=== PATIENT | male | born 1950 | race Caucasian/White ===

== ENCOUNTER 2020-03-20 13:59 | Emergency (ER) | payer MEDICARE, SELFPAY ==
--- NOTE | 2020-03-20 | CT_ITS ---
EXAMINATION: CT ABDOMEN AND PELVIS WITH CONTRAST CLINICAL INFORMATION: Lower abdominal pain COMPARISON: None TECHNIQUE: Multidetector volumetric images were obtained from the superior aspect of the liver through the pubic symphysis following administration 85 mL of Omnipaque 350 intravenous contrast. Sagittal and coronal reformatted images were obtained on the technologist's workstation. Oral contrast: Yes This CT examination was performed using dose optimization techniques as appropriate, variously including the following: *Automated exposure control *Adjustment of mA and/or kV according to patient size (this includes techniques or standardized protocols for targeted exams where dose is matched to indication/reason for exam; i.e. extremities or head) *Use of iterative reconstruction technique DLP: 538 mGy-cm FINDINGS: LUNG BASES: There is a small area of increased interstitial markings and question small nodules in the posterior costophrenic angle of the right lower lobe. Largest nodule measures 4 mm axial image 172 series 4. There is a small pericardial effusion. LIVER, GALLBLADDER, AND BILIARY TREE: The liver is normal in size, shape, and attenuation. There is a small 3 mm low-attenuation lesion in the left lobe of the liver probably representing a cyst. No other liver lesion is seen. The gallbladder has been removed. There is no biliary duct dilatation. PANCREAS: Unremarkable. SPLEEN: Unremarkable. ADRENAL GLANDS: There is a 1 x 1.4 cm left adrenal nodule axial image 27 series 3. Hounsfield units are indeterminate measuring 53 postcontrast. The right adrenal gland is normal-appearing. KIDNEYS AND URETERS: There are small bilateral renal cysts. There is a small 3 mm nonobstructing stone in the lower pole of the right kidney. No hydronephrosis is seen. There is mild right distal ureteral dilatation adjacent to the inflammatory changes in the sigmoid colon. BLADDER: There are bladder diverticuli. The prostate gland is enlarged and protrudes into the base of the bladder. GASTROINTESTINAL TRACT: There is diverticulosis of the colon. There is wall thickening of the sigmoid colon and stranding of the adjacent fat suggestive of sigmoid diverticulitis. Small and large bowel is otherwise unremarkable. The appendix is unremarkable. The stomach is a unremarkable. ABDOMINAL WALL: there is a left inguinal hernia containing fat. LYMPH NODES: Normal. VASCULAR: Unremarkable. PELVIC VISCERA: The prostate gland is enlarged and measures 8.2 x 6.5 cm in AP and transverse dimension. The prostate gland protrudes into the base of the bladder. OSSEOUS STRUCTURES: There are degenerative changes of the spine. IMPRESSION: Sigmoid diverticulitis. No evidence of obstruction, perforation or abscess. This causes mild right ureteral dilatation. No right hydronephrosis is seen. Small nonobstructing right renal stone. Small bladder diverticuli. Enlarged prostate gland that protrudes into the base of the bladder. Left inguinal hernia containing fat. Findings were communicated to be communicated by the [place] work flow engine wiper Camilla Fofana.
[2020-03-20 14:21] VITALS: BP 130/89; PULSE 97; RESP 18; TEMP 36.8; O2SAT 98; BMI 28.3
[2020-03-20] MEDS: 0.9 % Sodium Chloride 1,000 ML 999 ML IVCONT (15:49)
[2020-03-20 15:55] LABS: MANUAL DIFF FLAG NO
[2020-03-20 16:02] LABS: Basophils Absolute Auto 0.1 X10*3/uL (0.0-0.2); Basophils Percent Auto 0.4 % (0-2); Eosinophils Absolute Auto 0.1 X10*3/uL (0.0-0.4); Eosinophils Percent Auto 0.7 % (0-4); Hematocrit 47.2 % (42-52); Imm Gran Abs Auto 0.03 X10*3/uL (0.00-0.03); Imm Gran Pct Auto 0.3 % (0.0-0.4); Lymphocytes Absolute Auto 1.7 X10*3/uL (1.2-4.9); Lymphocytes Percent Auto 14.8 % (20-40); Mean Corpuscular HGB Conc 33.9 g/dl (31.0-36.0); Mean Corpuscular Hemoglobin 31.2 pg (27.0-33.0); Mean Platelet Volume 9.4 fL (9.4-12.4); Monocytes Absolute Auto 0.9 X10*3/uL (0.1-1.2); Neutrophils Absolute Auto 8.8 X10*3/uL (2.0-8.3); Neutrophils Percent Auto 75.8 % (45-73); Platelet Count 268 X10*3/uL (160-400); Red Blood Count 5.13 X10*6/uL (4.60-5.80); Red Cell Distribution Width 11.9 % (11.0-16.0); White Blood Count 11.6 X10*3/uL (4.8-10.8)
--- NOTE | 2020-03-20 16:06 | ED.ABDPAIN ---
HPI - Abdominal Pain General Chief Complaint: Abdominal Pain Stated Complaint: abdominal pain Time Seen by Provider: 03/20/20 15:07 Source: patient Mode of arrival: ambulatory Limitations: language barrier History of Present Illness HPI narrative: 70yoM c PMHx of HTN and enlarged prostate presenting to the ED c c/o lower abd pain x 2 days With associated increased urgency /frequency. Reports recently had A colonoscopy by the mechanic sound technician and patient believes that the colonoscopy was within normal limits. Therefore the GI doctor instructed him to come to the ER. Denies Fevers, N/V/D, CP/SOB, back pain, hematuria or dysuria. Related Data Allergies Allergy/AdvReac Type Severity Reaction Status Date / Time No Known Allergies Allergy Verified 03/20/20 14:20 Review of Systems Review of Systems Yes all other systems are reviewed and are negative Constitutional: Reports as per HPI, Denies anorexia, Denies body ache(s), Denies chills, Denies fatigue, Denies fever(s), Denies headache(s), Denies poor appetite, Denies weakness, Denies weight gain and Denies weight loss Eyes: Reports as per HPI Reports as per HPI, Denies dizziness, Denies headache(s) and Denies neck pain Cardiovascular: Reports as per HPI, Denies chest pain and Denies dyspnea Respiratory: Reports as per HPI, Denies cough and Denies dyspnea Gastrointestinal: Reports as per HPI, Reports abdominal pain, Denies melena, Denies hematochezia, Denies coffee ground emesis, Denies constipation, Denies diarrhea, Denies loose stools, Denies nausea, Denies vomiting and Denies hematemesis Genitourinary: Reports as per HPI, Denies hematuria, Denies difficulty urinating, Denies genital lesions, Denies genital pain, Denies flank pain, Denies urinary frequency, Denies urinary hesitancy and Denies urinary urgency Musculoskeletal: Reports as per HPI, Denies neck pain, Denies numbness and Denies tingling Skin/Breast: Reports as per HPI Reports as per HPI, Denies dizziness, Denies headache(s), Denies numbness, Denies tingling and Denies weakness Psychiatric: Reports as per HPI Endocrine: Reports as per HPI and Denies fatigue Hematologic/Lymphatic: Reports as per HPI Allergic/Immunologic: Reports as per HPI Physical Exam Vital Signs and I&O and Narrative: Vital Signs and I&O: Vital Signs Temp 98.2 F 03/20/20 14:21 Pulse 97 03/20/20 14:21 Resp 18 03/20/20 14:21 BP 130/89 03/20/20 14:21 Pulse Ox 98 03/20/20 14:21 Intake & Output 03/19/20 03/20/20 03/20/20 18:59 06:59 18:59 Intake Total 1000 / 1000 Balance 1000 / 1000 Weight 77.111 kg Intake: Intake, IV Amoun t 1000 / 1000 0.9 % Sodium C hloride 1,000 ml 1000 / 1000 @ 999 mls/hr I VCONT .Q1H1M [facility] Rx#:[id number] Body Mass Index 28.3 Const: General: cooperative, healthy appearing, comfortable, no acute distress, well developed, alert, awake and Physically active Nutritional Appearance: average body habitus and well nourished Orientation/consciousness: patient oriented x3 Limitations: no limitations HENMT: Head: Yes normal to inspection, Yes No palpable skull fracture present, Yes normocephalic and Yes atraumatic Ears: hearing grossly normal bilaterally General nose exam: Normal external nose present Face and sinus: Yes normal facial exam Mouth: moist mucous membranes Eyes: General: appearance normal, both eyes and all related structures Visual Romano: normal visual romano by confrontation Alignment and Position: alignment normal Periorbital: periorbital findings normal Eyelids: Yes eyelids normal Conjunctivae: conjunctivae normal Sclerae: sclerae normal Pupils: Equal, round and reactive pupils present EOM: EOMs intact bilaterally Neck: Neck: Yes normal visual inspection, Yes full ROM, Yes no lymphadenopathy, Yes no meningeal signs, Yes trachea midline and Yes supple Chest: Chest palpation & inspection: normal inspection of the chest Resp: Effort & Inspection: normal respiratory effort and able to speak in complete sentences Auscultation: clear to auscultation bilaterally, no crackles, no rales, no rhonchi and no wheezes Cardio: Rate: regular rate Rhythm: regular rhythm Heart sounds: S1 normal heart sound present and S2 normal heart sound present Peripheral pulses: Peripheral pulses 2+ throughout GI: Inspection: Yes normal to inspection Palpation (GI): Soft to palpation, nontender and No hepatosplenomegaly present Percussion: Yes normal to percussion Auscultation: normal bowel sounds : General: Yes no CVA tenderness Back/Spine/Pelvis: Back: no CVA tenderness Cervical Spine: normal cervical lordosis and cervical ROM normal Thoracic/Lumbar Spine: thoracic and lumbar spine normal to inspection and thoraco-lumbar ROM normal Skin: General skin exam: no rashes or lesions noted, elasticity normal and turgor normal Trauma: no lacerations or abrasions Wounds: no wounds Hair: normal Nails: normal Neuro: General: patient oriented x3 and no meningeal signs Cranial nerves: Yes CN's II-XII intact bilaterally and Yes Equal, round and reactive pupils present Cognition (Neuro): normal cognition Gait exam (Neuro): Normal gait present Motor exam (neuro): 5/5 motor strength present throughout Extrem: General: Yes normal to inspection, Yes full ROM, Yes capillary refill normal, Yes no clubbing, cyanosis or edema, No no pedal edema, No no calf tenderness, Yes normal gait and No edema Right upper extremity: normal to inspection, full ROM and normal capillary refill; no edema Left upper extremity: normal to inspection, full ROM and normal capillary refill; no edema Right lower extremity: normal to inspection, full ROM and normal capillary refill; no edema Left lower extremity: normal to inspection, full ROM and normal capillary refill; no edema Psych: Appearance: grossly normal and well kempt Mental Status: mental status grossly normal Speech and movement: Normal speech and movement present and Clear speech present Affect: normal affect Attitude: cooperative Thought process: Normal thought process present Thought content: Normal thought content present Insight: Good insight present (Psych) Judgement: Good judgement present (Psych) Course Course Course Narrative: - Labs WNL. - Awaiting CT scan of abd/pelvis c IV contrast and UA. - Sign out to VICTORIANO Faria. MDM - Abdominal Pain MDM Narrative Medical decision making narrative: 70yoM c PMHx of HTN and enlarged prostate presenting to the ED c c/o lower abd pain x 2 days With associated increased urgency /frequency. Reports recently had A colonoscopy by the mechanic sound technician and patient believes that the colonoscopy was within normal limits. Therefore the GI doctor instructed him to come to the ER. Denies Fevers, N/V/D, CP/SOB, back pain, hematuria or dysuria. - Concern for obstruction vs UTI. Lessd concern for appendicitis. Plan: Labs, CT scan of abd/pelvis c IV contrast, UA. Pt declined pain meds at this time reports tooo Motrin machine captain at 11am. Then re-evaluate. Lab Data Result diagrams: 03/20/20 15:46 03/20/20 15:45 Labs: Lab Results 03/20/20 03/20/20 03/20/20 Range/Units 15:45 15:46 15:46 WBC 11.6 H (4.8-10.8) X10*3/uL RBC 5.13 (4.60-5.80) X10*6/uL Hgb 16.0 (14.0-18.0) g/dl Hct 47.2 (42-52) % MCV 92.0 (80-98) fL MCH 31.2 (27.0-33.0) pg MCHC 33.9 (31.0-36.0) g/dl RDW 11.9 (11.0-16.0) % Plt Count 268 (160-400) X10*3/uL MPV 9.4 (9.4-12.4) fL Immature Gran % (Auto) 0.3 (0.0-0.4) % Neut % (Auto) 75.8 H (45-73) % Lymph % (Auto) 14.8 L (20-40) % [place] % (Auto) 8.0 (2-11) % Eos % (Auto) 0.7 (0-4) % Baso % (Auto) 0.4 (0-2) % Lymph # (Auto) 1.7 (1.2-4.9) X10*3/uL [place] # (Auto) 0.9 (0.1-1.2) X10*3/uL Eos # (Auto) 0.1 (0.0-0.4) X10*3/uL Baso # (Auto) 0.1 (0.0-0.2) X10*3/uL Abs Immat Gran (auto) 0.03 (0.00-0.03) X10*3/uL Absolute Neuts (auto) 8.8 H (2.0-8.3) X10*3/uL Absolute Nucleated RBC 0.000 (0.0-0.012) X10*3/uL Nucleated RBC % (auto) 0.0 (0.0-0.2) /100WBC Hold Purple Top SEE NOTE PT (10.8-13.0) SEC INR (0.9-1.1) Sodium 139 (135-145) mmol/L Potassium 3.7 (3.3-5.1) mmol/l Chloride 104 (96-108) mmol/L Carbon Dioxide 25 (22-29) mmol/L Anion Gap 14 (12-20) BUN 11 (9-16) mg/dL Creatinine 1.07 (0.5-1.4) mg/dL Estim Creat Clear Calc 60.6 Estimated GFR > 60 Random Glucose 104 (60-115) mg/dL Calcium 9.2 (8.4-10.2) mg/dL Total Bilirubin 0.8 (0.0-1.0) mg/dL Direct Bilirubin 0.3 (0.0-0.5) mg/dL AST 12 (5-37) U/L ALT 11 (0-40) U/L Alkaline Phosphatase 70 (39-117) U/L Total Protein 7.2 (6.5-8.0) g/dL Albumin 3.9 (3.5-5.0) g/dL 03/20/20 Range/Units 15:46 WBC (4.8-10.8) X10*3/uL RBC (4.60-5.80) X10*6/uL Hgb (14.0-18.0) g/dl Hct (42-52) % MCV (80-98) fL MCH (27.0-33.0) pg MCHC (31.0-36.0) g/dl RDW (11.0-16.0) % Plt Count (160-400) X10*3/uL MPV (9.4-12.4) fL Immature Gran % (Auto) (0.0-0.4) % Neut % (Auto) (45-73) % Lymph % (Auto) (20-40) % [place] % (Auto) (2-11) % Eos % (Auto) (0-4) % Baso % (Auto) (0-2) % Lymph # (Auto) (1.2-4.9) X10*3/uL [place] # (Auto) (0.1-1.2) X10*3/uL Eos # (Auto) (0.0-0.4) X10*3/uL Baso # (Auto) (0.0-0.2) X10*3/uL Abs Immat Gran (auto) (0.00-0.03) X10*3/uL Absolute Neuts (auto) (2.0-8.3) X10*3/uL Absolute Nucleated RBC (0.0-0.012) X10*3/uL Nucleated RBC % (auto) (0.0-0.2) /100WBC Hold Purple Top PT 13.4 H (10.8-13.0) SEC INR 1.1 (0.9-1.1) Sodium (135-145) mmol/L Potassium (3.3-5.1) mmol/l Chloride (96-108) mmol/L Carbon Dioxide (22-29) mmol/L Anion Gap (12-20) BUN (9-16) mg/dL Creatinine (0.5-1.4) mg/dL Estim Creat Clear Calc Estimated GFR Random Glucose (60-115) mg/dL Calcium (8.4-10.2) mg/dL Total Bilirubin (0.0-1.0) mg/dL Direct Bilirubin (0.0-0.5) mg/dL AST (5-37) U/L ALT (0-40) U/L Alkaline Phosphatase (39-117) U/L Total Protein (6.5-8.0) g/dL Albumin (3.5-5.0) g/dL [facility] Past Medical History Attestation statement: The following information was validated with the patient. Medical History Hypertension Prostate enlargement Surgical History History of cholecystectomy Social History Social History Alcohol intake: unknown Smoking Status: Unknown if ever smoked Use of substances other than those prescribed or required for medical reasons: No Advance Directives: No Advance Directives Information Provided: No
[2020-03-20 16:18] LABS: INTERNATIONAL NORM RATIO 1.1 (0.9-1.1); Prothrombin Time 13.4 SEC (10.8-13.0)
[2020-03-20 16:20] LABS: Alanine Aminotransferase 11 U/L (0-40); Albumin Level 3.9 g/dL (3.5-5.0); Alkaline Phosphatase 70 U/L (39-117); Anion Gap 14 (12-20); Aspartate Amino Transferase 12 U/L (5-37); Bilirubin Direct 0.3 mg/dL (0.0-0.5); Bilirubin Total 0.8 mg/dL (0.0-1.0); Blood Urea Nitrogen 11 mg/dL (9-16); Calcium 9.2 mg/dL (8.4-10.2); Carbon Dioxide 25 mmol/L (22-29); Chloride 104 mmol/L (96-108); Creatinine Clr Calc Pharmacy 60.6; Estimated Glomerular Filt Rate > 60; Glucose Random 104 mg/dL (60-115); Potassium 3.7 mmol/l (3.3-5.1); Sodium 139 mmol/L (135-145); Total Protein 7.2 g/dL (6.5-8.0)
[2020-03-20] MEDS: iohexoL 350 MG/ML 100 ML INFUS..BTL IV (16:32)
[2020-03-20 17:45] LABS: Glucose Urine UA NEG (NEG); Leukocyte Esterase Urine NEG (NEG); Nitrite Urine NEG (NEG); Urine Blood NEG (NEG); Urine Ketones NEG (NEG); Urine Protein NEG (NEG-TRACE)
[2020-03-20 17:46] LABS: Appearance Urine CLEAR; Color Urine STRAW
[2020-03-20 18:09] LABS: RBC Urine 0-2 /HPF (0); Squamous Epithelial Cell Urine TRACE /LPF; WBC Urine 0-2 /HPF (0-4)
== END 2020-03-20 18:35 | disposition home or self-care (01) ==
PROVIDERS: Physician Assistant Medical; Emergency Provider Internal Medicine; PCP Internal Medicine
DX: R10.9 Unspecified abdominal pain (principal); I10 Essential (primary) hypertension; Z79.899 Other long term (current) drug therapy
CPT/HCPCS: 36415; 74177; 80048; 80076; 81001; 85025; 85610; 96360; 99284

== ENCOUNTER → 2020-05-15 10:18 | Outpatient (BNVA) | payer SELFPAY | PROVIDERS: Visit Provider Internal Medicine Gastroenterology | DX: Z76.89 Persons encountering health services in other specified circumstances (principal) ==

== ENCOUNTER 2020-10-20 15:25 | Outpatient (REF) | payer MEDICARE, SELFPAY ==
--- NOTE | ~2020-10-20 | XR_ITS ---
EXAMINATION: XR CHEST CLINICAL INFORMATION: R06.00 - Dyspnea, unspecified COMPARISON: Chest radiographs 10/25/2018 TECHNIQUE: 2 views of the chest were obtained. FINDINGS: The lungs are clear. There is no airspace consolidation or effusion. The vascularity is normal. There is no pneumothorax or pneumomediastinum. The costophrenic sulci are clear. The heart is normal in size. The hilar and mediastinal contours are normal. No visible acute bony abnormality. XR/XR chest 2V IMPRESSION: Unremarkable examination.
== END 2020-10-20 15:26 | disposition home or self-care (01) ==
LOC: HO.HMGCX 15:25
PROVIDERS: PCP Internal Medicine; Visit Provider Internal Medicine
DX: R07.9 Chest pain, unspecified (principal); R06.00 Dyspnea, unspecified; I10 Essential (primary) hypertension; N40.0 Benign prostatic hyperplasia without lower urinary tract symptoms
CPT/HCPCS: 71046

== ENCOUNTER 2020-10-21 07:57 | Outpatient (REF) | payer MEDICARE, SELFPAY ==
[2020-10-21 11:40] LABS: Hematocrit 51.2 % (42-52); Hemoglobin 16.8 g/dl (14.0-18.0); Mean Corpuscular HGB Conc 32.8 g/dl (31.0-36.0); Mean Corpuscular Hemoglobin 30.8 pg (27.0-33.0); Mean Corpuscular Volume 93.9 fL (80-98); Mean Platelet Volume 9.9 fL (9.4-12.4); Platelet Count 242 X10*3/uL (160-400); Red Blood Count 5.45 X10*6/uL (4.60-5.80); Red Cell Distribution Width 12.3 % (11.0-16.0); White Blood Count 6.7 X10*3/uL (4.8-10.8)
[2020-10-21 11:59] LABS: Alanine Aminotransferase 12 U/L (0-40); Albumin Level 3.9 g/dL (3.5-5.0); Alkaline Phosphatase 83 U/L (39-117); Anion Gap 14 (12-20); Aspartate Amino Transferase 12 U/L (5-37); Bilirubin Total 1.1 mg/dL (0.0-1.0); Blood Urea Nitrogen 21 mg/dL (9-16); Calcium 9.6 mg/dL (8.4-10.2); Carbon Dioxide 28 mmol/L (22-29); Chloride 104 mmol/L (96-108); Cholesterol 168 mg/dL; Estimated Glomerular Filt Rate > 60; Glucose Fasting 87 mg/dL (60-99); HDL Cholesterol 39 mg/dL; LDL Cholesterol Calculated 95 mg/dl; Potassium 3.6 mmol/L (3.3-5.1); Sodium 142 mmol/L (135-145); Total Protein 7.3 g/dL (6.5-8.0); Triglycerides 174 mg/dL
[2020-10-21 12:25] LABS: B Type Natriuretic Peptide < 10 pg/mL (<100)
[2020-10-21 12:26] LABS: Prostate Specific Antigen Scr 2.94 ng/mL (<0.05-4.0)
== END 2020-10-21 07:58 | disposition home or self-care (01) ==
LOC: HO.HMGCLDS 07:57
PROVIDERS: PCP Internal Medicine; Visit Provider Internal Medicine
DX: R06.00 Dyspnea, unspecified (principal); R07.9 Chest pain, unspecified; I10 Essential (primary) hypertension; N40.0 Benign prostatic hyperplasia without lower urinary tract symptoms
CPT/HCPCS: 36415; 80053; 80061; 83880; 84153; 85027

== ENCOUNTER → 2021-02-22 13:19 | Outpatient (BNVA) | payer MEDICARE, SELFPAY | PROVIDERS: PCP Internal Medicine; Referring Provider Internal Medicine; Visit Provider Internal Medicine Gastroenterology | DX: R07.9 Chest pain, unspecified (principal); R10.9 Unspecified abdominal pain; I10 Essential (primary) hypertension; N40.0 Benign prostatic hyperplasia without lower urinary tract symptoms | CPT/HCPCS: 99212 ==

== ENCOUNTER → 2021-04-14 09:00 | Outpatient (BNVA) | payer MEDICARE, SELFPAY | PROVIDERS: PCP Internal Medicine; Referring Provider Internal Medicine Gastroenterology; Visit Provider Internal Medicine Cardiovascular Disease | DX: I10 Essential (primary) hypertension (principal); R07.9 Chest pain, unspecified | CPT/HCPCS: 99202 ==

== ENCOUNTER → 2021-05-17 09:58 | Outpatient (REF) | payer MEDICARE, SELFPAY ==
--- NOTE | 2021-05-17 10:05 | CA_ITS ---
Acquisition Time: 2021-05-17 11:08:13 Total Exercise Time: 00:05:00 Test Indications: cp Medications: Protocol: RALPH Max HR: 139 BPM 93% of Pred: 148 BPM Max BP: 174/094 mmHG Max Work Load: 7.0 METS Exercise stress test with exercise 5 min of of Ralph protocol, [id number] MPHR, with mild to moderate shortness of breath, no chest discomfort, with isolated PVC, with normotensive response to exercise, without EKG changes meeting criteria for ischemia. Test reviewed with Dr Bach. Referred By: Toni Bach Overread By: CARLOS ALBERTO BEDOLLA
== END ==
LOC: HO.CARD 09:58
PROVIDERS: Visit Provider Radiology Radiation Oncology
DX: R07.9 Chest pain, unspecified (principal)
CPT/HCPCS: 93017

== ENCOUNTER 2021-12-02 07:54 | Outpatient (REF) | payer MEDICARE, SELFPAY ==
[2021-12-02 11:17] LABS: Hematocrit 50.2 % (42.0-52.0); Hemoglobin 16.4 g/dl (14.0-18.0); Mean Corpuscular HGB Conc 32.7 g/dl (31.0-36.0); Mean Corpuscular Hemoglobin 30.4 pg (27.0-33.0); Mean Corpuscular Volume 93.1 fL (80.0-98.0); Mean Platelet Volume 9.9 fL (9.4-12.4); Platelet Count 232 X10*3/uL (160-400); Red Blood Count 5.39 X10*6/uL (4.60-5.80); Red Cell Distribution Width 12.4 % (11.0-16.0); White Blood Count 6.9 X10*3/uL (4.8-10.8)
[2021-12-02 11:25] LABS: Alanine Aminotransferase 13 U/L (0-40); Albumin Level 3.9 g/dL (3.5-5.0); Alkaline Phosphatase 76 U/L (39-117); Anion Gap 11 (12-20); Aspartate Amino Transferase 13 U/L (5-37); Bilirubin Total 1.1 mg/dL (0.0-1.0); Blood Urea Nitrogen 15 mg/dL (9-16); Calcium 9.4 mg/dL (8.4-10.2); Carbon Dioxide 29 mmol/L (22-29); Chloride 103 mmol/L (96-108); Cholesterol 162 mg/dL; Estimated Glomerular Filt Rate > 60; Glucose Fasting 94 mg/dL (60-99); HDL Cholesterol 36 mg/dL; LDL Cholesterol Calculated 86 mg/dl; Potassium 3.8 mmol/L (3.3-5.1); Sodium 139 mmol/L (135-145); Total Protein 7.4 g/dL (6.5-8.0); Triglycerides 200 mg/dL
[2021-12-02 11:52] LABS: Prostate Specific Antigen Scr 4.54 ng/mL (<0.05-4.0)
== END 2021-12-02 07:55 | disposition home or self-care (01) ==
LOC: HO.HMGCLDS 07:54
PROVIDERS: PCP Internal Medicine; Visit Provider Internal Medicine
DX: Z00.00 Encounter for general adult medical examination without abnormal findings (principal); Z12.5 Encounter for screening for malignant neoplasm of prostate; N40.0 Benign prostatic hyperplasia without lower urinary tract symptoms; I10 Essential (primary) hypertension
CPT/HCPCS: 36415; 80053; 80061; 84153; 85027

== ENCOUNTER → 2022-01-05 11:01 | Outpatient (BNVA) | payer MEDICARE, SELFPAY | PROVIDERS: PCP Internal Medicine; Visit Provider Surgery | DX: K64.8 Other hemorrhoids (principal); K64.4 Residual hemorrhoidal skin tags | CPT/HCPCS: 46600; 99202 ==

== ENCOUNTER 2022-03-07 07:42 | Outpatient (REF) | payer MEDICARE, SELFPAY ==
[2022-03-07 12:06] LABS: PSA,Total (Free>4and<10) 2.82 ng/mL (0.00-4.00)
== END 2022-03-07 07:43 | disposition home or self-care (01) ==
LOC: HO.HMGCLDS 07:42
PROVIDERS: PCP Internal Medicine; Visit Provider Internal Medicine
DX: N40.0 Benign prostatic hyperplasia without lower urinary tract symptoms (principal); Z12.5 Encounter for screening for malignant neoplasm of prostate
CPT/HCPCS: 36415; 84153

== ENCOUNTER 2022-07-04 14:56 | Outpatient (REF) | payer MEDICARE, SELFPAY ==
[2022-07-04 16:38] LABS: MANUAL DIFF FLAG NO
[2022-07-04 16:39] LABS: Basophils Absolute Auto 0.1 X10*3/uL (0.0-0.2); Eosinophils Absolute Auto 0.1 X10*3/uL (0.0-0.4); Eosinophils Percent Auto 1.7 % (0-4); Hemoglobin 17.4 g/dl (14.0-18.0); Imm Gran Abs Auto 0.02 X10*3/uL (0.00-0.03); Imm Gran Pct Auto 0.3 % (0.0-0.4); Lymphocytes Absolute Auto 2.4 X10*3/uL (1.2-4.9); Lymphocytes Percent Auto 31.1 % (20-40); Mean Corpuscular HGB Conc 34.1 g/dl (31.0-36.0); Mean Corpuscular Hemoglobin 31.1 pg (27.0-33.0); Mean Corpuscular Volume 91.1 fL (80.0-98.0); Mean Platelet Volume 9.8 fL (9.4-12.4); Monocytes Absolute Auto 0.6 X10*3/uL (0.1-1.2); Monocytes Percent Auto 7.9 % (2-11); Neutrophils Absolute Auto 4.4 x10*3/uL (2.0-8.3); Platelet Count 256 X10*3/uL (160-400); White Blood Count 7.6 X10*3/uL (4.8-10.8)
[2022-07-04 18:13] LABS: Alanine Aminotransferase 10 U/L (0-40); Albumin Level 3.9 g/dL (3.5-5.0); Alkaline Phosphatase 80 U/L (39-117); Anion Gap 9 (12-20); Aspartate Amino Transferase 12 U/L (5-37); Bilirubin Total 0.7 mg/dL (0.0-1.0); Blood Urea Nitrogen 18 mg/dL (9-16); Calcium 9.6 mg/dL (8.4-10.2); Carbon Dioxide 29 mmol/L (22-29); Chloride 104 mmol/L (96-108); Estimated Glomerular Filt Rate > 60; Glucose Random 101 mg/dL (60-115); Potassium 3.3 mmol/L (3.3-5.1); Sodium 139 mmol/L (135-145); Total Protein 7.2 g/dL (6.5-8.0)
[2022-07-04 18:20] LABS: Troponin-I High Sensitivity 16.4 ng/L (<3.5-35.0)
== END 2022-07-04 14:57 | disposition home or self-care (01) ==
LOC: HO.HMGCLDS 14:56
PROVIDERS: PCP Internal Medicine; Visit Provider Internal Medicine
DX: R07.9 Chest pain, unspecified (principal)
CPT/HCPCS: 36415; 80053; 84484; 85025

== ENCOUNTER → 2022-07-13 07:56 | Outpatient (REF) | payer MEDICARE, SELFPAY ==
--- NOTE | ~2022-07-13 | NM_ITS ---
Exercise Myocardial perfusion study Indication: Chest pain to evaluate for myocardial ischemia Technique: The patient was brought in for an exercise perfusion study on 07/13/2022. Patient performed exercise as per Hernán protocol and was injected 25 mCi of sestamibi was given intravenously one target HR was achieved. Images were obtained using the SPECT gamma camera interlaced with the gating device. Images were obtained in supine position. Resting perfusion study was performed on 07/14/2022. Patient was administered 25 mCi of sestamibi intravenously at rest. Images were then obtained in supine position. Images obtained with and without CT attenuation. Total DLP 87 mGy-cm. Images were processed with the software and compared side to side in short axis, horizontal long axis and vertical long axis views. Findings: The stress perfusion study showed non attenuated images show moderately reduced uptake in the basal inferior wall of the LV myocardium. Attenuation corrected images show mildly reduced uptake in the distal anterior and apex of the LV myocardium.. The gated study shows normal LV systolic function with visually estimated LVEF of greater than 55%. LV cavity is normal in size. The gated study shows normal systolic wall thickening and contraction of all segments. There is no transient ischemic dilation. Resting study shows no change in perfusion pattern compared to stress perfusion study. Gating at rest reveals normal systolic wall motion with ejection fraction at 57%. The findings are consistent with no clear reversible defect suggestive of ischemia. Likely normal myocardial perfusion. NM/NM cardiolite stress test Impression: 1. Normal myocardial perfusion 2. Gated LVEF is 57% 3. Transient ischemic dilatation not present Stress EKG is borderline for ischemia
--- NOTE | 2022-07-13 08:09 | CA_ITS ---
Acquisition Time: 2022-07-13 08:15:48 Total Exercise Time: 00:05:30 Test Indications: CHEST PAIN Medications: METOPROLOL LOSARTAN TAMSULOSIN ASA Protocol: RALPH Max HR: 129 BPM 87% of Pred: 147 BPM Max BP: 174/082 mmHG Max Work Load: 7.0 METS Exercise stress test with exercise 5 min 30 sec of Ralph protocol, achieving 87% MPHR, with mild to moderate sob, no chest discomfort, with isolated PVCs, with normotensive response to exercise, without EKG changes meeting criteria for ischemia, with J point depression and upsloping ST segments noted. Nuclear images pending. Test reviewed with Dr Bach Referred By: Renetta Feliz Overread By: CARLOS ALBERTO BEDOLLA
== END ==
LOC: HO.CARD 07:56
PROVIDERS: PCP Internal Medicine; Visit Provider Internal Medicine
DX: R07.9 Chest pain, unspecified (principal)
CPT/HCPCS: 78452; 93017; A9500

== ENCOUNTER 2022-10-19 14:43 | Outpatient (REF) | payer MEDICARE, SELFPAY ==
--- NOTE | ~2022-10-19 | XR_ITS ---
EXAMINATION: XR CHEST CLINICAL INFORMATION: Cough COMPARISON: 10/20/2020 TECHNIQUE: 2 views of the chest were obtained. FINDINGS: Multifocal infiltrates are present in both lungs, right greater than left. Heart size is normal. No evidence of CHF. No pleural effusions. Cholecystostomy clips in the right upper quadrant. Biconvex thoracolumbar scoliosis is present. XR/XR chest 2V IMPRESSION: Multifocal infiltrates, right greater than left, consistent with pneumonia. Repeat imaging is recommended after treatment.
== END 2022-10-19 14:44 | disposition home or self-care (01) ==
LOC: HO.HMGCX 14:43
PROVIDERS: PCP Internal Medicine; Visit Provider Internal Medicine
DX: R50.9 Fever, unspecified (principal)
CPT/HCPCS: 71046

== ENCOUNTER 2022-10-31 09:49 | Outpatient (REF) | payer MEDICARE, SELFPAY ==
--- NOTE | ~2022-10-31 | XR_ITS ---
EXAMINATION: XR CHEST CLINICAL INFORMATION: Pneumonia COMPARISON: Chest 10/19/2022 TECHNIQUE: 2 views of the chest were obtained. FINDINGS: The lungs are well-expanded with patchy opacities in the right upper lobe, right middle lobe and left midlung likely resolving infiltrates and/or atelectasis. No new infiltrates. No pleural effusion. Heart size and pulmonary vascularity is normal. No gross bony abnormality seen. XR/XR chest 2V IMPRESSION: Resolving bilateral infiltrates and/or atelectasis. No new infiltrate seen. No pleural effusion.
== END 2022-10-31 09:50 | disposition home or self-care (01) ==
LOC: HO.HMGCX 09:49
PROVIDERS: PCP Internal Medicine; Visit Provider Internal Medicine
DX: J18.9 Pneumonia, unspecified organism (principal)
CPT/HCPCS: 71046

== ENCOUNTER 2022-11-03 07:52 | Outpatient (REF) | payer MEDICARE, SELFPAY ==
[2022-11-03 10:45] LABS: B Type Natriuretic Peptide 16 pg/mL (<100)
[2022-11-03 11:12] LABS: MANUAL DIFF FLAG NO
[2022-11-03 11:31] LABS: Basophils Absolute Auto 0.1 X10*3/uL (0.0-0.2); Basophils Percent Auto 0.8 % (0-2); Eosinophils Absolute Auto 0.2 X10*3/uL (0.0-0.4); Eosinophils Percent Auto 2.6 % (0-4); Hematocrit 45.6 % (42.0-52.0); Hemoglobin 14.9 g/dl (14.0-18.0); Imm Gran Abs Auto 0.02 X10*3/uL (0.00-0.03); Imm Gran Pct Auto 0.3 % (0.0-0.4); Lymphocytes Absolute Auto 2.4 X10*3/uL (1.2-4.9); Lymphocytes Percent Auto 35.6 % (20-40); Mean Corpuscular HGB Conc 32.7 g/dl (31.0-36.0); Mean Corpuscular Hemoglobin 30.1 pg (27.0-33.0); Mean Corpuscular Volume 92.1 fL (80.0-98.0); Mean Platelet Volume 9.8 fL (9.4-12.4); Monocytes Absolute Auto 0.6 X10*3/uL (0.1-1.2); Monocytes Percent Auto 9.2 % (2-11); Neutrophils Absolute Auto 3.4 x10*3/uL (2.0-8.3); Neutrophils Percent Auto 51.5 % (45-73); Platelet Count 299 X10*3/uL (160-400); Red Blood Count 4.95 X10*6/uL (4.60-5.80); Red Cell Distribution Width 12.8 % (11.0-16.0); White Blood Count 6.6 X10*3/uL (4.8-10.8)
[2022-11-03 11:50] LABS: Alanine Aminotransferase 9 U/L (0-40); Albumin Level 3.4 g/dL (3.5-5.0); Alkaline Phosphatase 70 U/L (39-117); Anion Gap 9 (12-20); Aspartate Amino Transferase 12 U/L (5-37); Bilirubin Total 0.9 mg/dL (0.0-1.0); Blood Urea Nitrogen 14 mg/dL (9-16); C Reactive Protein 0.35 mg/dL (< or = 0.50); Calcium 9.4 mg/dL (8.4-10.2); Carbon Dioxide 27 mmol/L (22-29); Chloride 108 mmol/L (96-108); Estimated Glomerular Filt Rate > 60; Glucose Random 91 mg/dL (60-115); Sodium 140 mmol/L (135-145); Total Protein 7.1 g/dL (6.5-8.0)
== END 2022-11-03 07:53 | disposition home or self-care (01) ==
LOC: HO.HMGCLDS 07:52
PROVIDERS: PCP Internal Medicine; Visit Provider Internal Medicine
DX: J18.9 Pneumonia, unspecified organism (principal); R05.9 Cough, unspecified; R06.00 Dyspnea, unspecified
CPT/HCPCS: 36415; 80053; 83880; 85025; 86140

== ENCOUNTER 2023-01-23 10:43 | Outpatient (AMB) | payer MEDICARE, SELFPAY ==
[2023-01-23 11:07] VITALS: BP 130/72; PULSE 65; O2SAT 96; BMI 27.0
--- NOTE | 2023-01-23 11:07 | MHC.PC.OV ---
Vital Signs 01/23/23 11:07 Height 5 ft 5 in Weight 162 lb BMI 27.0 BP 130/72 Blood Pressure Location Lt brachial Position Sitting Pulse 65 Pulse Source Pulse Oximeter Pulse Oximetry (%) 96 Oxygen Delivery Method Room Air Intake Visit Reasons: 3 month follow up Intake Note: Pt is here today for 3 months follow up visit. Allergies No Known Allergies Allergy (Verified 01/23/23 11:11) Tobacco use date assessed: 07/04/22 Dental Screening Dental Screen Date: 01/23/23 Did you have a dental visit in the last 12 months?: Yes Did you have a dental problem in the last 6 months where you did not have access to dental care?: No Was dental information given to patient?: Patient has dentist HPI 3 month follow up HPI Details Patient presents for the follow-up on hypertension and BPH stable on current medications. [facility] Medical History Annual physical exam Chest pain DE LEÓN (dyspnea on exertion) Hemorrhoid prolapse Hypertension Prostate enlargement Surgical History History of cholecystectomy History of colonoscopy Hx of endoscopy Family History Father No problems noted. Mother Stroke Hypertension Social History Housing: House Alcohol intake: current Alcohol intake frequency: a few times a month Patient Tobacco Use Status: Former Tobacco user e-Cigarette/Vaping Use: Never Used Current occupational status: retired Cognitive needs: No Hearing needs: No Vision needs: Yes Questionnaire Thrive Questionnaire Date Thrive assessed: 07/04/22 SHARYN-7 AMB Questionnaire SHARYN-7 Date SHARYN - 7 assessed: 07/04/22 Source: Developed by Drs. Brendan Lawson, Carmita Casillas, Evans Goodwin and colleagues, with an educational lennie from [employer]. Review of Systems Const All systems reviewed & are unremarkable except as noted in HPI and below Reports no additional complaints Eyes Reports no additional complaints ENT Reports no additional complaints Card Reports no additional complaints Resp Reports no additional complaints GI Reports no additional complaints Reports no additional complaints Physical exam (Primary Care) Vital Signs: Last Vital Signs Pulse 65 01/23/23 11:07 BP 130/72 08/14/23 11:07 Pulse Ox 96 01/23/23 11:07 Oxygen Delivery Method Room Air 01/23/23 11:07 BMI result Body Mass Index 27.0 Tobacco/Smoking Status: Tobacco use Status Tobacco use date assessed 07/04/22 01/23/23 11:09 Patient Tobacco Use Status Former Tobacco user 01/23/23 11:09 e-Cigarette/Vaping Use Never Used 01/23/23 11:09 Thrive Assessment: Date of Thrive Assessment Date Thrive assessed 07/04/22 01/23/23 11:09 Const General: no acute distress HENMT Ears: hearing grossly normal bilaterally Mouth: Normal oral and palatal mucosa present Neck Neck: Yes no lymphadenopathy and Yes supple Resp Effort & Inspection: normal respiratory effort Auscultation: clear to auscultation bilaterally Cardio Rhythm: regular rhythm Heart sounds: S1 normal heart sound present and S2 normal heart sound present GI Inspection: Yes normal to inspection Palpation (GI): Soft to palpation Percussion: Yes normal to percussion Auscultation: normal bowel sounds Assessment and Plan Assessment & Plan (1) Hypertension: Code(s): I10 - Essential (primary) hypertension Plan: Continue medications (2) Annual physical exam: Code(s): Z00.00 - Encounter for general adult medical examination without abnormal findings Plan: Well-balanced diet regular physical activity discussed with the patient. he will follow-up in 6 months with a fasting labs before (3) Prostate enlargement: Code(s): N40.0 - Benign prostatic hyperplasia without lower urinary tract symptoms Plan: Monitor PSA and continue tamsulosin Orders: Orders Comprehensive [place]. Panel Fast 6 Months I10 - Essential (primary) hypertension, N40.0 - Benign prostatic hyperplasia without lower urinary tract symptoms, Z00.00 - Encounter for general adult medical examination without abnormal findings Lipid Panel 6 Months I10 - Essential (primary) hypertension, N40.0 - Benign prostatic hyperplasia without lower urinary tract symptoms, Z00.00 - Encounter for general adult medical examination without abnormal findings PSA,Total (Free>4and<10) 6 Months I10 - Essential (primary) hypertension, N40.0 - Benign prostatic hyperplasia without lower urinary tract symptoms, Z00.00 - Encounter for general adult medical examination without abnormal findings Complete Blood Count Auto Diff 6 Months I10 - Essential (primary) hypertension, N40.0 - Benign prostatic hyperplasia without lower urinary tract symptoms, Z00.00 - Encounter for general adult medical examination without abnormal findings Coding Level of Care Code Est Pt Level 4 (50692) Diagnoses Hypertension I10 Annual physical exam Z00.00 Prostate enlargement N40.0
== END 2023-01-23 11:52 | disposition home or self-care (01) ==
PROVIDERS: Visit Provider Internal Medicine
DX: I10 Essential (primary) hypertension (principal); Z00.00 Encounter for general adult medical examination without abnormal findings; N40.0 Benign prostatic hyperplasia without lower urinary tract symptoms
CPT/HCPCS: 99214

== ENCOUNTER 2023-03-22 11:54 | Outpatient (AMB) | payer MEDICARE, SELFPAY ==
[2023-03-22 12:04] VITALS: BP 110/68; PULSE 81; O2SAT 99; BMI 26.5
--- NOTE | 2023-03-22 12:04 | MHC.PC.OV ---
Vital Signs 03/22/23 12:04 Height 5 ft 5 in Weight 159 lb 4 oz BMI 26.5 BP 110/68 Blood Pressure Location Lt brachial Position Sitting Pulse 81 Pulse Source Pulse Oximeter Pulse Oximetry (%) 99 Oxygen Delivery Method Room Air Intake Visit Reasons: Follow up Allergies No Known Allergies Allergy (Verified 03/22/23 12:05) Medication List - Last Reconciled 03/22/23 by Renetta Feliz MD losartan-hydrochlorothiazide 50-12.5 mg 1 tab PO DAILY metoprolol succinate ER 50 mg PO DAILY pantoprazole 40 mg PO DAILY tamsulosin 0.4 mg PO DAILY triamcinolone acetonide 0.5% 1 appl topical BID Tobacco use date assessed: 03/22/23 HPI Follow up HPI Details Pt c/o 2 weeks of chills and night sweats, LLQ abd pain on and off and constipation, worse since hemorrhoid laser treatment in [place] 3 weeks ago. Pt has been taking Dulcolax daily. He denies rectal pain or discharge hematochezia melena. Patient reported intermittent dysuria and increased urinary frequency but no hematuria. [facility] Medical History Annual physical exam Chest pain DE LEÓN (dyspnea on exertion) Hemorrhoid prolapse Hypertension Prostate enlargement Surgical History History of cholecystectomy History of colonoscopy Hx of endoscopy Family History Father No problems noted. Mother Stroke Hypertension Social History Housing: House Alcohol intake: current Alcohol intake frequency: a few times a month Patient Tobacco Use Status: Former Tobacco user e-Cigarette/Vaping Use: Never Used Current occupational status: retired Cognitive needs: No Hearing needs: No Vision needs: Yes Questionnaire Thrive Questionnaire Date Thrive assessed: 07/04/22 SHARYN-7 AMB Questionnaire SHARYN-7 Date SHARYN - 7 assessed: 07/04/22 Source: Developed by Drs. Brendan Lawson, Carmita Casillas, Evans Goodwin and colleagues, with an educational lennie from [employer]. Review of Systems Const All systems reviewed & are unremarkable except as noted in HPI and below Reports no additional complaints Eyes Reports no additional complaints ENT Reports no additional complaints Card Reports no additional complaints Resp Reports no additional complaints GI Reports no additional complaints Physical exam (Primary Care) Vital Signs: Last Vital Signs Pulse 81 03/22/23 12:04 BP 110/68 03/22/23 12:04 Pulse Ox 99 03/22/23 12:04 Oxygen Delivery Method Room Air 03/22/23 12:04 BMI result Body Mass Index 26.5 Tobacco/Smoking Status: Tobacco use Status Tobacco use date assessed 03/22/23 03/22/23 12:08 Patient Tobacco Use Status Former Tobacco user 03/22/23 12:04 e-Cigarette/Vaping Use Never Used 03/22/23 12:04 Thrive Assessment: Date of Thrive Assessment Date Thrive assessed 07/04/22 03/22/23 12:04 Const General: no acute distress Resp Effort & Inspection: normal respiratory effort Auscultation: clear to auscultation bilaterally Cardio Rhythm: regular rhythm Heart sounds: S1 normal heart sound present and S2 normal heart sound present GI Inspection: Yes normal to inspection Palpation (GI): Soft to palpation, Tenderness to palpation present (GI) in the LLQ and No Rebound tenderness present Auscultation: normal bowel sounds Assessment and Plan Assessment & Plan (1) Diverticulitis: Code(s): K57.92 - Diverticulitis of intestine, part unspecified, without perforation or abscess without bleeding Plan: Obtain CT of the abdomen pelvis to rule out diverticulitis. Check comprehensive panel urinalysis and urine culture. patient was advised to increase stool softener to 2 tablets a day and increase fluid intake. For any worsening symptoms he was advised to go to the emergency (2) Prostate enlargement: Code(s): N40.0 - Benign prostatic hyperplasia without lower urinary tract symptoms Plan: Continue Flomax will add finasteride (3) Hypertension: Code(s): I10 - Essential (primary) hypertension Plan: Continue current medications Orders: Orders Urine Culture Today I10 - Essential (primary) hypertension, K57.92 - Diverticulitis of intestine, part unspecified, without perforation or abscess without bleeding, N40.0 - Benign prostatic hyperplasia without lower urinary tract symptoms, R30.0 - Dysuria Comprehensive Met. Panel Today I10 - Essential (primary) hypertension, K57.92 - Diverticulitis of intestine, part unspecified, without perforation or abscess without bleeding, N40.0 - Benign prostatic hyperplasia without lower urinary tract symptoms UA w Microscopic Today I10 - Essential (primary) hypertension, K57.92 - Diverticulitis of intestine, part unspecified, without perforation or abscess without bleeding, N40.0 - Benign prostatic hyperplasia without lower urinary tract symptoms Complete Blood Count Auto Diff Today I10 - Essential (primary) hypertension, K57.92 - Diverticulitis of intestine, part unspecified, without perforation or abscess without bleeding, N40.0 - Benign prostatic hyperplasia without lower urinary tract symptoms CT abdomen pelvis w IV con Today I10 - Essential (primary) hypertension, K57.92 - Diverticulitis of intestine, part unspecified, without perforation or abscess without bleeding, N40.0 - Benign prostatic hyperplasia without lower urinary tract symptoms Medications: New finasteride 5 mg PO DAILY 90 tabs 1RF Coding Level of Care Code Est Pt Level 3 (09265) Diagnoses Diverticulitis K57.92 Prostate enlargement N40.0 Hypertension I10
== END 2023-03-22 12:50 | disposition home or self-care (01) ==
PROVIDERS: PCP Internal Medicine; Visit Provider Internal Medicine
DX: K57.92 Diverticulitis of intestine, part unspecified, without perforation or abscess without bleeding (principal); N40.0 Benign prostatic hyperplasia without lower urinary tract symptoms; I10 Essential (primary) hypertension
CPT/HCPCS: 99213

== ENCOUNTER 2023-03-22 12:55 | Outpatient (REF) | payer MEDICARE, SELFPAY ==
[2023-03-22 16:09] LABS: Appearance Urine Clear; Color Urine Yellow; Glucose Urine UA Negative (Negative); Leukocyte Esterase Urine Negative (Negative); Nitrite Urine Negative (Negative); Specific Gravity - Urine 1.015 (1.005-1.025); UMIC TRIGGER UA YES; Urine Blood Small (1+) (Negative); Urine Ketones Negative (Negative); Urine Protein Negative (Neg-Trace)
[2023-03-22 16:17] LABS: Bacteria Urine None Seen (None Seen); Hyaline Casts Urine 0-2 /LPF (0-2); Squamous Epithelial Cell Urine 0-2 /HPF (0-2); WBC Urine 0-5 /HPF (0-5)
[2023-03-22 16:19] LABS: RBC Urine >20 /HPF (0-2)
[2023-03-22 17:17] LABS: Alanine Aminotransferase 6 U/L (0-40); Albumin Level 3.6 g/dL (3.5-5.0); Alkaline Phosphatase 73 U/L (39-117); Anion Gap 15 (12-20); Aspartate Amino Transferase 13 U/L (5-37); Bilirubin Total 0.7 mg/dL (0.0-1.0); Blood Urea Nitrogen 14 mg/dL (9-16); Calcium 10.2 mg/dL (8.4-10.2); Carbon Dioxide 24 mmol/L (22-29); Chloride 103 mmol/L (96-108); Estimated Glomerular Filt Rate > 60; Glucose Random 89 mg/dL (60-115); Potassium 3.7 mmol/L (3.3-5.1); Sodium 138 mmol/L (135-145); Total Protein 7.4 g/dL (6.5-8.0)
== END 2023-03-22 12:56 | disposition home or self-care (01) ==
LOC: HO.HMGCLDS 12:55
PROVIDERS: PCP Internal Medicine; Visit Provider Internal Medicine
DX: K57.92 Diverticulitis of intestine, part unspecified, without perforation or abscess without bleeding (principal); N40.0 Benign prostatic hyperplasia without lower urinary tract symptoms; I10 Essential (primary) hypertension; R30.0 Dysuria
CPT/HCPCS: 36415; 80053; 81001; 85025; 87086

== ENCOUNTER 2023-03-23 12:40 | Outpatient (REF) | payer MEDICARE, SELFPAY ==
--- NOTE | ~2023-03-23 | CT_ITS ---
EXAMINATION: CT ABDOMEN AND PELVIS WITH CONTRAST CLINICAL INFORMATION: Diverticulitis. COMPARISON: 03/20/2020 TECHNIQUE: Multidetector volumetric images were obtained from the superior aspect of the liver through the pubic symphysis following administration 85 mL of Omnipaque 350 intravenous contrast. Sagittal and coronal reformatted images were obtained on the technologist's workstation. Oral contrast: No This CT examination was performed using dose optimization techniques as appropriate, variously including the following: *Automated exposure control *Adjustment of mA and/or kV according to patient size (this includes techniques or standardized protocols for targeted exams where dose is matched to indication/reason for exam; i.e. extremities or head) *Use of iterative reconstruction technique DLP: 343 mGy-cm FINDINGS: LUNG BASES: The visualized lung bases are unremarkable. LIVER, GALLBLADDER, AND BILIARY TREE: The liver is normal in size, shape, and attenuation. No focal hepatic lesion or biliary ductal dilatation is present. The gallbladder is surgically absent. PANCREAS: No ductal dilatation. SPLEEN: Not enlarged. ADRENAL GLANDS: 1.4 cm left adrenal nodule is indeterminate. KIDNEYS AND URETERS: The kidneys are symmetric in size and enhancement. 1.2 cm indeterminate right renal hypodensity. No hydronephrosis or perinephric stranding. BLADDER: Circumferential bladder wall thickening. The urinary bladder appears trabeculated. There are multiple bladder diverticula. GASTROINTESTINAL TRACT: Extensive diverticular disease of the descending and sigmoid colon. There is an inflamed diverticulum of the mid descending colon with pericolonic inflammatory changes. No small bowel obstruction. Appendix is within normal limits. Possible gastric wall thickening. ABDOMINAL WALL: Fat-containing left inguinal hernia. LYMPH NODES: Prominent perirectal lymph nodes. VASCULAR: Normal caliber abdominal aorta. PELVIC VISCERA: Marked enlargement and heterogeneity of the prostate gland. The prostate gland measures 6.0 x 7.4 cm in transverse dimensions. OSSEOUS STRUCTURES: No destructive bone lesion. CT/CT abdomen pelvis w IV con IMPRESSION: Acute diverticulitis of the descending colon. Follow-up imaging after treatment is advised. Marked prostatomegaly. Bladder wall thickening and trabeculation. Multiple bladder diverticula. This likely represents bladder outlet obstruction. Possible gastric wall thickening. Correlation with direct visualization may be considered.
[2023-03-23] MEDS: Barium Sulfate Oral (Mocha) 450 ML ORAL.SUSP 900 ML PO (15:07)
[2023-03-23] MEDS: iohexoL 350 MG/ML 100 ML INFUS..BTL IV (15:10)
== END 2023-03-23 12:41 | disposition home or self-care (01) ==
LOC: HO.CT 12:40
PROVIDERS: PCP Internal Medicine; Visit Provider Internal Medicine
DX: K57.92 Diverticulitis of intestine, part unspecified, without perforation or abscess without bleeding (principal); N40.0 Benign prostatic hyperplasia without lower urinary tract symptoms; I10 Essential (primary) hypertension
CPT/HCPCS: 74177; Q9967

== ENCOUNTER 2023-04-11 09:11 | Outpatient (AMB) | payer MEDICARE, SELFPAY ==
[2023-04-11 09:18] VITALS: BP 132/80; PULSE 71; O2SAT 98; BMI 26.6
--- NOTE | 2023-04-11 09:18 | A.OFFPC_ITS ---
Vital Signs 04/11/23 09:18 Height 5 ft 5 in Weight 160 lb BMI 26.6 BP 132/80 Blood Pressure Location Lt brachial Position Sitting Pulse 71 Pulse Source Pulse Oximeter Pulse Oximetry (%) 98 Oxygen Delivery Method Room Air Intake Visit Reasons: Follow up Intake Note: Pt is here today for a follow up visit on abdominal pain. Allergies No Known Allergies Allergy (Verified 04/11/23 09:18) Medication List - Last Reconciled 04/11/23 by Renetta Feliz MD finasteride 5 mg PO DAILY losartan-hydrochlorothiazide 50-12.5 mg 1 tab PO DAILY metoprolol succinate ER 50 mg PO DAILY pantoprazole 40 mg PO DAILY tamsulosin 0.4 mg PO DAILY triamcinolone acetonide 0.5% 1 appl topical BID Tobacco use date assessed: 03/22/23 HPI Follow up HPI Details Pt presents for follow-up of diverticulitis. The symptoms resolved completely. Patient had negative colonoscopy 3 years ago Patient reports persistent BPH symptoms slightly improved since started Flomax. Hypertension is controlled on current medications. [facility] Medical History Hemorrhoid prolapse Annual physical exam DE LEÓN (dyspnea on exertion) Chest pain Hypertension Prostate enlargement Surgical History Hx of endoscopy History of colonoscopy History of cholecystectomy Family History Father No problems noted. Mother Stroke Hypertension Social History Housing: House Alcohol intake: current Alcohol intake frequency: a few times a month Patient Tobacco Use Status: Former Tobacco user e-Cigarette/Vaping Use: Never Used Current occupational status: retired Cognitive needs: No Hearing needs: No Vision needs: Yes Questionnaire Thrive Questionnaire Date Thrive assessed: 07/04/22 SHARYN-7 AMB Questionnaire SHARYN-7 Date SHARYN - 7 assessed: 07/04/22 Source: Developed by Drs. Brendan Lawson, Carmita Casillas, Evans Goodwin and colleagues, with an educational lennie from [employer]. Review of Systems Const All systems reviewed & are unremarkable except as noted in HPI and below Reports no additional complaints Eyes Reports no additional complaints ENT Reports no additional complaints Card Reports no additional complaints Resp Reports no additional complaints GI Reports no additional complaints Reports no additional complaints Physical exam (Primary Care) Vital Signs: Last Vital Signs Pulse 71 04/11/23 09:18 BP 132/80 04/11/23 09:18 Pulse Ox 98 04/11/23 09:18 Oxygen Delivery Method Room Air 04/11/23 09:18 BMI result Body Mass Index 26.6 Tobacco/Smoking Status: Tobacco use Status Tobacco use date assessed 03/22/23 04/11/23 09:18 Patient Tobacco Use Status Former Tobacco user 04/11/23 09:18 e-Cigarette/Vaping Use Never Used 04/11/23 09:18 Thrive Assessment: Date of Thrive Assessment Date Thrive assessed 07/04/22 04/11/23 09:18 Const General: no acute distress Resp Effort & Inspection: normal respiratory effort Auscultation: clear to auscultation bilaterally Cardio Rhythm: regular rhythm Heart sounds: S1 normal heart sound present and S2 normal heart sound present GI Inspection: Yes normal to inspection Palpation (GI): Soft to palpation Percussion: Yes normal to percussion Auscultation: normal bowel sounds General: Yes Bimanual renal exam normal bilaterally Assessment and Plan Assessment & Plan (1) Microscopic hematuria: Code(s): R31.29 - Other microscopic hematuria Plan: For an episode of microscopic hematuria, urinary bladder diverticula present on CT and history of tobacco use patient will be referred to urology (2) Prostate enlargement: Code(s): N40.0 - Benign prostatic hyperplasia without lower urinary tract symptoms Plan: Continue Flomax and finasteride (3) Hypertension: Code(s): I10 - Essential (primary) hypertension Plan: Continue current medications (4) Diverticulitis: Comment: 04/03, negative colonoscopy in 2019 Code(s): K57.92 - Diverticulitis of intestine, part unspecified, without perforation or abscess without bleeding Plan: High-fiber diet start Citrucel discussed with the patient Orders: Referrals Urology Referral R31.29 - Other microscopic hematuria Coding Level of Care Code Est Pt Level 4 (30365) Diagnoses Microscopic hematuria R31.29 Prostate enlargement N40.0 Hypertension I10 Diverticulitis K57.92
== END 2023-04-11 09:56 | disposition home or self-care (01) ==
PROVIDERS: PCP Internal Medicine; Visit Provider Internal Medicine
DX: R31.29 Other microscopic hematuria (principal); N40.0 Benign prostatic hyperplasia without lower urinary tract symptoms; I10 Essential (primary) hypertension; K57.92 Diverticulitis of intestine, part unspecified, without perforation or abscess without bleeding
CPT/HCPCS: 99214

== ENCOUNTER 2023-06-09 09:16 | Outpatient (AMB) | payer MEDICARE, SELFPAY ==
--- NOTE | 2023-06-09 09:48 | A.OFFVIS_ITS ---
Intake Intake Visit Reasons: microscopic hematuria Intake Note: NEW Patient presents today to established treatment for: Meds- Finasteride Allergies to Antibiotic- No Known Allergies Blood Thinner- None Jazz Singer Required: Yes Accompanied by: Self / Same As Patient Allergies No Known Allergies Allergy (Verified 06/09/23 09:49) Medication List - Last Reconciled 06/09/23 by Swapna Pitts MD finasteride 5 mg PO DAILY losartan-hydrochlorothiazide 50-12.5 mg 1 tab PO DAILY metoprolol succinate ER 50 mg PO DAILY pantoprazole 40 mg PO DAILY tamsulosin 0.4 mg PO DAILY triamcinolone acetonide 0.5% 1 appl topical BID HPI HPI Comments History of Present Illness Details Nano is a 73 year old male who is here for evaluation for microscopic hematuria, enlarged prostate and renal mass. The patient is [place] Citizen speaking and his daughter is interpreting for him. Past Medical history includes but not limited to hypertension, followed by GI for 'gastric issues'. The patient was seen by PCP in March for abdominal pain. CT scan and urinal ysis was done. CT scan findings noted enlarged prostate and he was started on finasteride, previously he states he had been taking tamsulosin. The patient states urination improved since started on finasteride. nocturia 1-2 times, denies gross hematuria, denies dysuria, denies family history of prostate cancer, history of nicotine use smoked a pack a day for 12-17 the years, quit cigarette use about 25 years ago. I have reviewed chart, imaging CT abdomen with IV contrast 03/22/2023 reviewed, urine culture 03/22/2023 no growth. I have discussed reasons for blood in the urine may include but are not limited to kidney stones, cancer in the urinary tract, kidney stone disease or inflammatory conditions of the urinary tract BPH. I have discussed workup to include cystoscopy evaluation. CT abdomen and pelvis with IV contrast ---enhancing 1.2 cm indeterminate right renal hypodensity. No hydronephrosis or perinephric stranding. Marked prostatomegaly. Bladder wall thickening and trabeculation. Multiple bladder diverticula. Plan: MRI renal mass protocol Follow-up office cystoscopy. Agree with Proscar and tamsulosin [facility] Medical History Hemorrhoid prolapse Annual physical exam DE LEÓN (dyspnea on exertion) Chest pain Hypertension Prostate enlargement Surgical History Hx of endoscopy History of colonoscopy History of cholecystectomy Family History Father No problems noted. Mother Stroke Hypertension Social History Housing: House Alcohol intake: current Alcohol intake frequency: a few times a month Patient Tobacco Use Status: Former Tobacco user e-Cigarette/Vaping Use: Never Used Current occupational status: retired Cognitive needs: No Hearing needs: No Vision needs: Yes Results AMB Urinalysis, Automated UA Leukoctes 15 Romelia/uL Last Edit by Jacki Badillo Colleen on 06/09/23 10:13 UA Nitrite Negative Last Edit by Jacki Badillo [facility] on 06/09/23 10:13 UA Urobilinogen 0.2 mg/dL Last Edit by Jacki Badillo [facility] on 06/09/23 10:1 3 UA Protein 15 mg/dL Last Edit by Jacki Badillo [facility] on 06/09/23 10:13 UA pH 6.0 Last Edit by Jacki Badillo [facility] on 06/09/23 10:13 UA Blood 0 Florencio/uL Last Edit by Jacki Badillo Colleen on 06/09/23 10:13 UA Specific [place] 1.030 Last Edit by Jacki Badillo [facility] on 06/09/23 10: 13 UA Ketone Negative Last Edit by Jacki Badillo [facility] on 06/09/23 10:13 UA Bilirubin 1 mg/dL Last Edit by Jacki Badillo [facility] on 06/09/23 10:13 1+ Jacki Badillo 06/09/23 10:13 UA Glucose 0 mg/dL Last Edit by CHRISTIN Lazaro on 06/09/23 10:13 Results Reviewed Results Reviewed: Laboratory Last Values Urine pH (Auto) 6.0 06/09/23 10:11 Specific [place] (Auto) 1.030 06/09/23 10:11 Urine Protein (Auto) 15 mg/dL 06/09/23 10:11 Glucose (UA)(Auto) 0 mg/dL 06/09/23 10:11 Urine Ketones (Auto) Negative 06/09/23 10:11 Urine Blood (Auto) 0 Florencio/uL 06/09/23 10:11 Urine Nitrite (Auto) Negative 06/09/23 10:11 Urine Bilirubin (Auto) 1 mg/dL 06/09/23 10:11 Urine Urobilinogen (Auto) 0.2 mg/dL 06/09/23 10:11 Leukocyte Esterase (Auto) 15 Romelia/uL 06/09/23 10:11 Date of Service: 03/23/23 EXAMINATION: CT ABDOMEN AND PELVIS WITH CONTRAST CLINICAL INFORMATION: Diverticulitis. COMPARISON: 03/20/2020 TECHNIQUE: Multidetector volumetric images were obtained from the superior aspect of the liver through the pubic symphysis following administration 85 mL of Omnipaque 350 intravenous contrast. Sagittal and coronal reformatted images were obtained on the technologist's workstation. Oral contrast: No This CT examination was performed using dose optimization techniques as appropriate, variously including the following: *Automated exposure control *Adjustment of mA and/or kV according to patient size (this includes techniques or standardized protocols for targeted exams where dose is matched to indication/reason for exam; i.e. extremities or head) *Use of iterative reconstruction technique DLP: 343 mGy-cm FINDINGS: LUNG BASES: The visualized lung bases are unremarkable. LIVER, GALLBLADDER, AND BILIARY TREE: The liver is normal in size, shape, and attenuation. No focal hepatic lesion or biliary ductal dilatation is present. The gallbladder is surgically absent. PANCREAS: No ductal dilatation. SPLEEN: Not enlarged. ADRENAL GLANDS: 1.4 cm left adrenal nodule is indeterminate. KIDNEYS AND URETERS: The kidneys are symmetric in size and enhancement. 1.2 cm indeterminate right renal hypodensity. No hydronephrosis or perinephric stranding. BLADDER: Circumferential bladder wall thickening. The urinary bladder appears trabeculated. There are multiple bladder diverticula. GASTROINTESTINAL TRACT: Extensive diverticular disease of the descending and sigmoid colon. There is an inflamed diverticulum of the mid descending colon with pericolonic inflammatory changes. No small bowel obstruction. Appendix is within normal limits. Possible gastric wall thickening. ABDOMINAL WALL: Fat-containing left inguinal hernia. LYMPH NODES: Prominent perirectal lymph nodes. VASCULAR: Normal caliber abdominal aorta. PELVIC VISCERA: Marked enlargement and heterogeneity of the prostate gland. The prostate gland measures 6.0 x 7.4 cm in transverse dimensions. OSSEOUS STRUCTURES: No destructive bone lesion. IMPRESSION: Acute diverticulitis of the descending colon. Follow-up imaging after treatment is advised. Marked prostatomegaly. Bladder wall thickening and trabeculation. Multiple bladder diverticula. This likely represents bladder outlet obstruction. Possible gastric wall thickening. Correlation with direct visualization may be considered. Assessment & Plan Assessment & Plan (1) Microscopic hematuria: Code(s): R31.29 - Other microscopic hematuria (2) Prostate enlargement: Code(s): N40.0 - Benign prostatic hyperplasia without lower urinary tract symptoms (3) Renal mass: Code(s): N28.89 - Other specified disorders of kidney and ureter Plan Plan: MRI renal mass protocol Follow-up office cystoscopy. Agree with Proscar and tamsulosin Orders: Orders AMB Urinalysis Automated Today Z13.9 - Encounter for screening, unspecified MR abdomen wo/w con Today N28.89 - Other specified disorders of kidney and ureter Patient Instructions: The patient had an opportunity to ask questions regarding treatment plan. All questions were answered. Imaging, Laboratory studies and physical exam results were discussed and reviewed in detail. No major barriers to understanding were identified. The patient expressed understanding and agreement with the above treatment plan. The patient is aware they should contact our office by phone for worsening of their current condition or the appearance of new symptoms. Compliance is encouraged with any medications and followup testing that is ordered. It is a privilege to be allowed the opportunity to participate in the urologic care of your patient. If you have any questions or concerns regarding treatment for the above conditions please do not hesitate to contact me. The office telephone contact is [phone]. This note is constructed in part using voice recognition software. While every effort has been made to ensure accuracy vending mechanic errors may have been included. Yours sincerely, Swapna Pitts MD Coding Level of Care Code New Pt Level 4 (93740) Diagnoses Microscopic hematuria R31.29 Prostate enlargement N40.0 Renal mass N28.89
== END 2023-06-09 10:43 | disposition home or self-care (01) ==
PROVIDERS: PCP Internal Medicine; Visit Provider Urology
DX: R31.29 Other microscopic hematuria (principal); N40.0 Benign prostatic hyperplasia without lower urinary tract symptoms; N28.89 Other specified disorders of kidney and ureter; Z13.9 Encounter for screening, unspecified
CPT/HCPCS: 99204

== ENCOUNTER → 2023-06-09 09:16 | Outpatient (BNVA) | payer MEDICARE, SELFPAY | PROVIDERS: PCP Internal Medicine; Visit Provider Urology | DX: R31.29 Other microscopic hematuria (principal); N40.0 Benign prostatic hyperplasia without lower urinary tract symptoms; N28.89 Other specified disorders of kidney and ureter | CPT/HCPCS: 81003; 99202 ==

== ENCOUNTER 2023-08-03 07:42 | Outpatient (REF) | payer MEDICARE, SELFPAY ==
--- NOTE | ~2023-08-03 | MR_ITS ---
EXAMINATION: MR ABDOMEN WITHOUT AND WITH CONTRAST CLINICAL INFORMATION: Follow up hypodensity in the right kidney noted on a prior CT. COMPARISON: CT abdomen/pelvis 03/23/2023. TECHNIQUE: MR abdomen was performed without and with use of 7.5 mL intravenous Gadavist gadolinium contrast. Postcontrast images are performed in multiphase dynamic sequences. Imaging was performed in 3 planes. FINDINGS: LUNG BASES: The visualized lung bases are unremarkable. LIVER, GALLBLADDER, AND BILIARY TREE: Signal loss in the opposed-phase dual echo images consistent with hepatic steatosis. Otherwise, liver is normal in size and morphology. A few very tiny simple liver cysts are seen. No suspicious liver lesions. Cholecystectomy with stable dilatation of the common bile duct measuring up to 0.9 cm. No significant intrahepatic biliary ductal dilatation. No evidence of choledocholithiasis. PANCREAS: No measurable lesions. No main ductal dilatation. No peripancreatic inflammatory changes. SPLEEN: Normal. ADRENAL GLANDS: A 1.2 cm left adrenal nodule is stable dating back to 03/20/2020 (100:61) demonstrating signal loss in the opposed phased likely images consistent with a lipid rich adenoma, for which no imaging follow-up is recommended. Normal right adrenal gland. KIDNEYS AND URETERS: The kidneys are normal in size, shape, and enhance symmetrically. No hydronephrosis. No perinephric stranding. The lesion in question corresponds to a 1.3 cm T2 bright avascular Bosniak I cortical cyst along the lateral aspect of the mid right kidney, for which no imaging follow up is recommended. There is an additional 1 cm T2 bright simple Bosniak I cortical cyst in the lower pole of the left kidney, for which no imaging follow up is recommended. GASTROINTESTINAL TRACT: No evidence of bowel obstruction, ascites or fluid collection. ABDOMINAL WALL: No significant hernia is appreciated. LYMPH NODES: A 1 x 1.7 cm nodule abutting the diaphragmatic surface posterior to the stomach cardia (100:31) is unchanged dating back to 03/20/2020, which is reassuring. No new or enlarging lymphadenopathy. VASCULAR: Unremarkable. OSSEOUS STRUCTURES: No acute or aggressive-appearing osseous findings. MR/MR abdomen wo/w con IMPRESSION: 1. The lesion in question in the right kidney corresponds to a Bosniak I cortical cyst, for which no imaging follow-up is recommended. No suspicious renal lesions. 2. Hepatic steatosis. 3. Cholecystectomy with stable dilatation of the common bile duct measuring up to 0.9 cm. No evidence of choledocholithiasis. 4. Stable 1.2 cm left adrenal adenoma, for which no imaging follow-up is recommended.
[2023-08-03] MEDS: gadobutroL 7.5 ML VIAL IVPUSH (08:31)
== END 2023-08-03 07:43 | disposition home or self-care (01) ==
LOC: HO.MRI 07:42
PROVIDERS: PCP Internal Medicine; Visit Provider Urology
DX: N28.89 Other specified disorders of kidney and ureter (principal)
CPT/HCPCS: 74183; A9585

== ENCOUNTER 2023-10-16 09:47 | Outpatient (AMB) | payer MEDICARE, SELFPAY ==
--- NOTE | 2023-10-16 10:09 | A.OFFVIS_ITS ---
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 The patient had an MRI abdomen-08/03/23-the lesion was consistent with a renal cyst requiring no imaging follow-up. I have reviewed findings with the patient and his daughter who interprets for him. The patient is being evaluated for microscopic hematuria. The patient has history of nicotine use. He declines cystoscopy. Discussed PSA screening follow-up in 9 months, continue tamsulosin and Proscar. Review of chart: 06/09/23-- Nano is a 73 year old male who is here for evaluation for microscopic hematuria, enlarged prostate and renal mass. The patient is Irish speaking and his daughter is interpreting for him. Past Medical history includes but not limited to hypertension, followed by GI for 'gastric issues'. The patient was seen by PCP in March for abdominal pain. CT scan and urinalysis was done. CT scan findings noted enlarged prostate and he was started on finasteride, previously he states he had been taking tamsulosin. The patient states urination improved since started on finasteride. nocturia 1-2 times, denies gross hematuria, denies dysuria, denies family history of prostate cancer, history of nicotine use smoked a pack a day for 12-17 the years, quit cigarette use about 25 years ago. I have reviewed chart, imaging CT abdomen with IV contrast 03/23/2023 reviewed, indeterminate 1.2 cm lesion right kidney urine culture 03/22/2023 no growth. Discussed further evaluation with MRI abdomen. I have discussed reasons for blood in the urine may include but are not limited to kidney stones, cancer in the urinary tract, kidney stone disease or inflammatory conditions of the urinary tract BPH. I have discussed workup to include cystoscopy evaluation. 03/23/2023-- CT abdomen and pelvis with IV contrast ---enhancing 1.2 cm indeterminate right renal hypodensity. No hydronephrosis or perinephric stranding. Marked prostatomegaly. Bladder wall thickening and trabeculation. Multiple bladder diverticula. [facility] Medical History Hemorrhoid prolapse Annual physical exam DE LEÓN (dyspnea on exertion) Chest pain Hypertension Prostate enlargement Surgical History Hx of endoscopy History of colonoscopy History of cholecystectomy Family History Father No problems noted. Mother Stroke Hypertension Social History Housing: House Alcohol intake: current Alcohol intake frequency: a few times a month Patient Tobacco Use Status: Former Tobacco user e-Cigarette/Vaping Use: Never Used service: No Current occupational status: retired Cognitive needs: No Hearing needs: No Vision needs: Yes Review of Systems Const All systems reviewed & are unremarkable except as noted in HPI and below Reports no additional complaints Eyes Reports no additional complaints ENT Reports no additional complaints Card Reports no additional complaints Resp Reports no additional complaints GI Reports no additional complaints Reports as per HPI Musc Reports no additional complaints Skin/Breast Reports system reviewed and no additional complaints, except as documented Neuro Reports no additional complaints Psych Reports no additional complaints Endo Reports no additional complaints Joel/Lymph Reports no additional complaints Aller/Immun Reports no additional complaints Office Procedures Post Void Residual Post Residual Void Post Void Residual (PVR): [id number] Void Residual by ultrasound Results AMB Urinalysis, Automated UA Leukoctes 0 Romelia/uL Last Edit by CHRISTIN Lazaro on 10/16/23 10:26 UA Nitrite Negative Last Edit by CHRISTIN Lazaro on 10/16/23 10:26 UA Urobilinogen 0.2 mg/dL Last Edit by CHRISTIN Lazaro on 10/16/23 10:2 6 UA Protein 15 mg/dL Last Edit by CHRISTIN Lazaro on 10/16/23 10:26 UA pH 6.5 Last Edit by CHRISTIN Lazaro on 10/16/23 10:26 UA Blood 0 Florencio/uL Last Edit by CHRISTIN Lazaro on 10/16/23 10:26 UA Specific Rogers 1.020 Last Edit by CHRISTIN Lazaro on 10/16/23 10: 26 UA Ketone Negative Last Edit by CHRISTIN Lazaro on 10/16/23 10:26 UA Bilirubin 0 mg/dL Last Edit by CHRISTIN Lazaro on 10/16/23 10:26 UA Glucose 0 mg/dL Last Edit by CHRISTIN Lazaro on 10/16/23 10:26 Results Reviewed Results Reviewed: Laboratory Last Values Urine pH (Auto) 6.5 10/16/23 10:26 Specific Rogers (Auto) 1.020 10/16/23 10:26 Urine Protein (Auto) 15 mg/dL 10/16/23 10:26 Glucose (UA)(Auto) 0 mg/dL 10/16/23 10:26 Urine Ketones (Auto) Negative 10/16/23 10:26 Urine Blood (Auto) 0 Florencio/uL 10/16/23 10:26 Urine Nitrite (Auto) Negative 10/16/23 10:26 Urine Bilirubin (Auto) 0 mg/dL 10/16/23 10:26 Urine Urobilinogen (Auto) 0.2 mg/dL 10/16/23 10:26 Leukocyte Esterase (Auto) 0 Romelia/uL 10/16/23 10:26 Date of Service: 08/03/23 EXAMINATION: MR ABDOMEN WITHOUT AND WITH CONTRAST CLINICAL INFORMATION: Follow up hypodensity in the right kidney noted on a prior CT. COMPARISON: CT abdomen/pelvis 03/23/2023. TECHNIQUE: MR abdomen was performed without and with use of 7.5 mL intravenous Gadavist gadolinium contrast. Postcontrast images are performed in multiphase dynamic sequences. Imaging was performed in 3 planes. FINDINGS: LUNG BASES: The visualized lung bases are unremarkable. LIVER, GALLBLADDER, AND BILIARY TREE: Signal loss in the opposed-phase dual echo images consistent with hepatic steatosis. Otherwise, liver is normal in size and morphology. A few very tiny simple liver cysts are seen. No suspicious liver lesions. Cholecystectomy with stable dilatation of the common bile duct measuring up to 0.9 cm. No significant intrahepatic biliary ductal dilatation. No evidence of choledocholithiasis. PANCREAS: No measurable lesions. No main ductal dilatation. No peripancreatic inflammatory changes. SPLEEN: Normal. ADRENAL GLANDS: A 1.2 cm left adrenal nodule is stable dating back to 03/20/2020 (100:61) demonstrating signal loss in the opposed phased likely images consistent with a lipid rich adenoma, for which no imaging follow-up is recommended. Normal right adrenal gland. KIDNEYS AND URETERS: The kidneys are normal in size, shape, and enhance symmetrically. No hydronephrosis. No perinephric stranding. The lesion in question corresponds to a 1.3 cm T2 bright avascular Bosniak I cortical cyst along the lateral aspect of the mid right kidney, for which no imaging follow up is recommended. There is an additional 1 cm T2 bright simple Bosniak I cortical cyst in the lower pole of the left kidney, for which no imaging follow up is recommended. GASTROINTESTINAL TRACT: No evidence of bowel obstruction, ascites or fluid collection. ABDOMINAL WALL: No significant hernia is appreciated. LYMPH NODES: A 1 x 1.7 cm nodule abutting the diaphragmatic surface posterior to the stomach cardia (100:31) is unchanged dating back to 03/20/2020, which is reassuring. No new or enlarging lymphadenopathy. VASCULAR: Unremarkable. OSSEOUS STRUCTURES: No acute or aggressive-appearing osseous findings. IMPRESSION: 1. The lesion in question in the right kidney corresponds to a Bosniak I cortical cyst, for which no imaging follow-up is recommended. No suspicious renal lesions. 2. Hepatic steatosis. 3. Cholecystectomy with stable dilatation of the common bile duct measuring up to 0.9 cm. No evidence of choledocholithiasis. 4. Stable 1.2 cm left adrenal adenoma, for which no imaging follow-up is recommended. Date of Service: 03/23/23 EXAMINATION: CT ABDOMEN AND PELVIS WITH CONTRAST CLINICAL INFORMATION: Diverticulitis. COMPARISON: 03/20/2020 FINDINGS: LUNG BASES: The visualized lung bases are unremarkable. LIVER, GALLBLADDER, AND BILIARY TREE: The liver is normal in size, shape, and attenuation. No focal hepatic lesion or biliary ductal dilatation is present. The gallbladder is surgically absent. PANCREAS: No ductal dilatation. SPLEEN: Not enlarged. ADRENAL GLANDS: 1.4 cm left adrenal nodule is indeterminate. KIDNEYS AND URETERS: The kidneys are symmetric in size and enhancement. 1.2 cm indeterminate right renal hypodensity. No hydronephrosis or perinephric stranding. BLADDER: Circumferential bladder wall thickening. The urinary bladder appears trabeculated. There are multiple bladder diverticula. GASTROINTESTINAL TRACT: Extensive diverticular disease of the descending and sigmoid colon. There is an inflamed diverticulum of the mid descending colon with pericolonic inflammatory changes. No small bowel obstruction. Appendix is within normal limits. Possible gastric wall thickening. ABDOMINAL WALL: Fat-containing left inguinal hernia. LYMPH NODES: Prominent perirectal lymph nodes. VASCULAR: Normal caliber abdominal aorta. PELVIC VISCERA: Marked enlargement and heterogeneity of the prostate gland. The prostate gland measures 6.0 x 7.4 cm in transverse dimensions. OSSEOUS STRUCTURES: No destructive bone lesion. IMPRESSION: Acute diverticulitis of the descending colon. Follow-up imaging after treatment is advised. Marked prostatomegaly. Bladder wall thickening and trabeculation. Multiple bladder diverticula. This likely represents bladder outlet obstruction. Possible gastric wall thickening. Correlation with direct visualization may be considered. Assessment & Plan Assessment & Plan (1) Microscopic hematuria: Code(s): R31.29 - Other microscopic hematuria Category: Medical (2) Prostate enlargement: Code(s): N40.0 - Benign prostatic hyperplasia without lower urinary tract symptoms Category: Medical (3) Renal mass: Comment: MR Abdomen 08/03/2023 R renal Bosniak 1 cyst, no f/u needed Code(s): N28.89 - Other specified disorders of kidney and ureter Category: Medical (4) Renal cyst: Code(s): N28.1 - Cyst of kidney, acquired Category: Medical Plan PSA screening follow-up in 9 months, continue tamsulosin and Proscar. Orders: Orders AMB Post Void Residual by ultrasound 10/16/23 N39.8 - Other specified disorders of urinary system AMB Urinalysis Automated 10/16/23 Z13.9 - Encounter for screening, unspecified Patient Instructions: The patient had an opportunity to ask questions regarding treatment plan. The patient expressed understanding and agreement with the above treatment plan. The patient is aware they should contact our office by phone for worsening of their current condition or the appearance of new symptoms. Compliance is encouraged with any medications and followup testing that is ordered. It is a privilege to be allowed the opportunity to participate in the urologic care of your patient. If you have any questions or concerns regarding treatment for the above conditions please do not hesitate to contact me. The office telephone contact is [phone]. This note is constructed in part using voice recognition software. While every effort has been made to ensure accuracy broker agricultural produce errors may have been included. Yours sincerely, Swapna Pitts MD Coding Level of Care Code Tele Est Pt Level 4 (97876) Diagnoses Microscopic hematuria R31.29 Prostate enlargement N40.0 Renal mass N28.89 Renal cyst N28.1 CPT Codes Post Residual Void - PVR CPT Code: 64356-Lnfw Void Residual by ultrasound ([id number])
== END 2023-10-16 10:47 | disposition home or self-care (01) ==
PROVIDERS: PCP Internal Medicine; Visit Provider Urology
DX: R31.29 Other microscopic hematuria (principal); N40.0 Benign prostatic hyperplasia without lower urinary tract symptoms; N28.89 Other specified disorders of kidney and ureter; N28.1 Cyst of kidney, acquired
CPT/HCPCS: 99214

== ENCOUNTER → 2023-10-16 09:47 | Outpatient (BNVA) | payer MEDICARE, SELFPAY | PROVIDERS: PCP Internal Medicine; Visit Provider Urology | DX: N40.0 Benign prostatic hyperplasia without lower urinary tract symptoms (principal); R31.29 Other microscopic hematuria; N28.89 Other specified disorders of kidney and ureter; N28.1 Cyst of kidney, acquired | CPT/HCPCS: 51798; 81003; 99212 ==

== ENCOUNTER 2023-10-18 06:50 | Outpatient (REF) | payer MEDICARE, SELFPAY ==
[2023-10-18 10:22] LABS: MANUAL DIFF FLAG NO
[2023-10-18 10:48] LABS: Basophils Absolute Auto 0.1 X10*3/uL (0.0-0.2); Eosinophils Absolute Auto 0.2 X10*3/uL (0.0-0.4); Eosinophils Percent Auto 2.9 % (0-4); Hematocrit 46.7 % (42.0-52.0); Hemoglobin 15.5 g/dl (14.0-18.0); Imm Gran Abs Auto 0.01 X10*3/uL (0.00-0.03); Imm Gran Pct Auto 0.2 % (0.0-0.4); Lymphocytes Absolute Auto 2.7 X10*3/uL (1.2-4.9); Lymphocytes Percent Auto 45.4 % (20-40); Mean Corpuscular HGB Conc 33.2 g/dl (31.0-36.0); Mean Corpuscular Hemoglobin 31.1 pg (27.0-33.0); Mean Corpuscular Volume 93.8 fL (80.0-98.0); Mean Platelet Volume 9.8 fL (9.4-12.4); Monocytes Absolute Auto 0.5 X10*3/uL (0.1-1.2); Monocytes Percent Auto 8.6 % (2-11); Neutrophils Absolute Auto 2.5 x10*3/uL (2.0-8.3); Neutrophils Percent Auto 41.9 % (45-73); Platelet Count 219 X10*3/uL (160-400); Red Blood Count 4.98 X10*6/uL (4.60-5.80); Red Cell Distribution Width 12.9 % (11.0-16.0); White Blood Count 5.9 X10*3/uL (4.8-10.8)
[2023-10-18 11:07] LABS: PSA,Total (Free>4and<10) 2.76 ng/mL (0.00-4.00)
[2023-10-18 11:19] LABS: Alanine Aminotransferase 11 U/L (0-40); Albumin Level 3.6 g/dL (3.5-5.0); Alkaline Phosphatase 73 U/L (39-117); Anion Gap 13 (12-20); Aspartate Amino Transferase 14 U/L (5-37); Bilirubin Total 0.7 mg/dL (0.0-1.0); Blood Urea Nitrogen 18 mg/dL (9-16); Calcium 9.8 mg/dL (8.4-10.2); Carbon Dioxide 24 mmol/L (22-29); Chloride 108 mmol/L (96-108); Cholesterol 156 mg/dL (<200); Estimated Glomerular Filt Rate > 60; Glucose Fasting 104 mg/dL (60-99); HDL Cholesterol 39 mg/dL (>40); LDL Cholesterol Calculated 92 mg/dL (<100); Potassium 3.5 mmol/L (3.3-5.1); Sodium 141 mmol/L (135-145); Total Protein 7.2 g/dL (6.5-8.0); Triglycerides 129 mg/dL (<150)
== END 2023-10-18 06:51 | disposition home or self-care (01) ==
LOC: HO.HMGCLDS 06:50
PROVIDERS: PCP Internal Medicine; Visit Provider Internal Medicine
DX: Z00.00 Encounter for general adult medical examination without abnormal findings (principal); I10 Essential (primary) hypertension; N40.0 Benign prostatic hyperplasia without lower urinary tract symptoms; R06.00 Dyspnea, unspecified; Z12.5 Encounter for screening for malignant neoplasm of prostate
CPT/HCPCS: 36415; 80053; 80061; 84153; 85025

== ENCOUNTER 2023-10-20 09:10 | Outpatient (AMB) | payer MEDICARE, SELFPAY ==
[2023-10-20 09:37] VITALS: BP 120/76; PULSE 57; O2SAT 97; BMI 27.3
--- NOTE | 2023-10-20 09:37 | MHC.PC.OV ---
Vital Signs 10/20/23 09:37 Height 5 ft 5 in Weight 164 lb BMI 27.3 BP 120/76 Blood Pressure Location Lt brachial Position Sitting Pulse 57 Pulse Source Pulse Oximeter Pulse Oximetry (%) 97 Oxygen Delivery Method Room Air Intake Visit Reasons: Annual PE Intake Note: Pt is here today for PE. Allergies No Known Allergies Allergy (Verified 10/20/23 09:51) Medication List - Last Reconciled 10/20/23 by Renetta Feliz MD finasteride 5 mg PO DAILY hydrocortisone 2.5% 1 appl [place] BID-QID PRN losartan-hydrochlorothiazide 50-12.5 mg 1 tab PO DAILY metoprolol succinate ER 50 mg PO DAILY pantoprazole 40 mg PO DAILY tamsulosin 0.4 mg PO DAILY triamcinolone acetonide 0.5% 1 appl topical BID Tobacco use date assessed: 10/20/23 Fall risk assessment: No Falls in past year Last assessed Fall Risk: 10/20/23 Dental Screening Dental Screen Date: 10/20/23 Did you have a dental visit in the last 12 months?: Yes Did you have a dental problem in the last 6 months where you did not have access to dental care?: No Was dental information given to patient?: Patient has dentist HPI Annual PE HPI Details Pt presents for PE. PFSH Medical History Hemorrhoid prolapse Annual physical exam DE LEÓN (dyspnea on exertion) Chest pain Hypertension Prostate enlargement Surgical History Hx of endoscopy History of colonoscopy History of cholecystectomy Family History Father No problems noted. Mother Stroke Hypertension Social History Housing: House Alcohol intake: current Alcohol intake frequency: a few times a month Patient Tobacco Use Status: Former Tobacco user e-Cigarette/Vaping Use: Never Used service: No Current occupational status: retired Cognitive needs: No Hearing needs: No Vision needs: Yes Questionnaire PHQ-9 Over the last 2 weeks, how often have you been bothered by any of the following problems? 1. Little interest or pleasure in doing things: not at all 2. Feeling down, depressed, or hopeless: not at all 3. Trouble falling or staying asleep, or sleeping too much: not at all 4. Feeling tired or having little energy: not at all 5. Poor appetite or overeating: not at all 6. Feeling bad about yourself - or that you are a failure or have let yourself or your family down: not at all 7. Trouble concentrating on things, such as reading the newspaper or watching television: not at all 8. Moving or speaking so slowly that other people could have noticed. Or the opposite - being so fidgety or restless that you have been moving around a lot more than usual: not at all 9. Thoughts that you would be better off or of hurting yourself in some way: not at all Total score: 0 Depression Screening Interpretation: Negative Depression Screening Done: Yes Source: Developed by Drs. Brendan Lawson, Carmita Casillas, Evans Goodwin and colleagues, with an educational lennie from [employer]. Thrive Questionnaire Date Thrive assessed: 10/20/23 I am a: Patient What is your living situation today?: I have a steady place to live Within the past 12 months, did the food you bought not last and you didn't have the money to get more?: Never true Within the past 12 months, did you worry whether your food would run out before you got money to buy more?: Never true Do you have trouble paying for medicines?: No Do you have trouble getting transportation to medical appointments?: No Do you have trouble paying your heating and electricity bill?: No Do you have trouble taking care of your child, family member or friend?: No Do you have trouble with day-to-day activities such as bathing, preparing meals, shopping, managing finances, etc.?: No Are you currently unemployed and looking for a job?: No Are you interested in more education?: No Please select the resources that you would like help with: None THRIVE Score: 0 AUDIT C Alcohol Use Questionnaire (AUDIT-C) 1. How often do you have a drink containing alcohol?: Never 3. How often do you have six or more drinks on one occasion?: Never Total Score: 0 SHARYN-7 AMB Questionnaire SHARYN-7 Date SHARYN - 7 assessed: 10/20/23 Feeling nervous, anxious, or on edge: 0 = Not at all Not being able to stop or control worryin = Not at all Worrying too much about different things: 0 = Not at all Trouble relaxin = Not at all Being so restless that it is hard to sit still: 0 = Not at all Becoming easily annoyed or irritable: 0 = Not at all Feeling afraid as if something awful might happen: 0 = Not at all Total SHARYN-7 score (0-4 normal; 5-9 mild; 10-14 moderate; 15-21 severe): 0 Source: Developed by Drs. Brendan Lawson, Carmita Casillas, Evans Goodwin and colleagues, with an educational lennie from [employer]. Review of Systems Const All systems reviewed & are unremarkable except as noted in HPI and below Eyes Reports no additional complaints ENT Reports no additional complaints Card Reports no additional complaints Resp Reports no additional complaints GI Reports no additional complaints Reports no additional complaints Physical exam (Primary Care) Vital Signs: Last Vital Signs Pulse 57 10/20/23 09:37 BP 120/76 10/20/23 09:37 Pulse Ox 97 10/20/23 09:37 Oxygen Delivery Method Room Air 10/20/23 09:37 BMI result Body Mass Index 27.3 Tobacco/Smoking Status: Tobacco use Status Tobacco use date assessed 10/20/23 10/20/23 09:53 Patient Tobacco Use Status Former Tobacco user 10/20/23 09:38 e-Cigarette/Vaping Use Never Used 10/20/23 09:38 PHQ-9: PHQ-9 Score PHQ-9: Total score 0 10/20/23 10:09 Depression Screening Interpretation: Negative Thrive Assessment: Date of Thrive Assessment Date Thrive assessed 10/20/23 10/20/23 09:56 Const General: no acute distress HENMT Head: Yes normal to inspection Eyes General: appearance normal, both eyes and all related structures Neck Neck: Yes no lymphadenopathy and Yes supple Resp Effort & Inspection: normal respiratory effort Auscultation: clear to auscultation bilaterally Cardio Rhythm: regular rhythm Heart sounds: S1 normal heart sound present and S2 normal heart sound present GI Inspection: Yes normal to inspection Palpation (GI): Soft to palpation Percussion: Yes normal to percussion Auscultation: normal bowel sounds Assessment and Plan Assessment & Plan (1) Annual physical exam: Code(s): Z00.00 - Encounter for general adult medical examination without abnormal findings Plan: Well-balanced diet regular physical activity discussed with the patient. (2) Hypertension: Code(s): I10 - Essential (primary) hypertension Plan: Continue current medications (3) Prostate enlargement: Code(s): N40.0 - Benign prostatic hyperplasia without lower urinary tract symptoms Plan: Continue finasteride tamsulosin follow-up with urology (4) Renal mass: Comment: MR 07/2023 R renal Bosniak 1 cyst, no f/u needed Code(s): N28.89 - Other specified disorders of kidney and ureter (5) Adrenal adenoma: Comment: MR 07/2023 1.2 cm L ADRENAL ADENOMA STABLE on MR 2023, no follow-up needed Code(s): D35.00 - Benign neoplasm of unspecified adrenal gland Coding Level of Care Code Est Pt Prev Care >65y(54174) Diagnoses Annual physical exam Z00.00 Hypertension I10 Prostate enlargement N40.0 Renal mass N28.89 Adrenal adenoma D35.00
== END 2023-10-20 12:49 | disposition home or self-care (01) ==
PROVIDERS: PCP Internal Medicine; Visit Provider Internal Medicine
DX: Z00.00 Encounter for general adult medical examination without abnormal findings (principal); I10 Essential (primary) hypertension; N40.0 Benign prostatic hyperplasia without lower urinary tract symptoms; N28.89 Other specified disorders of kidney and ureter; D35.00 Benign neoplasm of unspecified adrenal gland
CPT/HCPCS: 99397

== ENCOUNTER 2024-03-08 13:35 | Outpatient (AMB) | payer MEDICARE, SELFPAY ==
--- NOTE | 2024-03-08 13:47 | MHC.PC.OV ---
Vital Signs 03/08/24 13:48 Height 5 ft 5 in Weight 164 lb BMI 27.3 BP 112/70 Blood Pressure Location Lt brachial Position Sitting Pulse 90 Pulse Source Pulse Oximeter Pulse Oximetry (%) 96 Oxygen Delivery Method Room Air Intake Visit Reasons: Follow up Allergies No Known Allergies Allergy (Verified 03/08/24 13:49) Medication List - Last Reconciled 03/08/24 by Renetta Feliz MD finasteride 5 mg PO DAILY hydrocortisone 2.5% 1 appl [place] BID-QID PRN losartan 50 mg PO DAILY metoprolol succinate ER 50 mg PO DAILY pantoprazole 40 mg PO DAILY tamsulosin 0.4 mg PO DAILY triamcinolone acetonide 0.5% 1 appl topical BID Tobacco use date assessed: 03/08/24 Fall risk assessment: No Falls in past year Last assessed Fall Risk: 03/08/24 Dental Screening Dental Screen Date: 10/20/23 HPI Follow up HPI Details Patient presents for the follow-up of hypertension BPH chronic GERD. [facility] Medical History Hemorrhoid prolapse Annual physical exam DE LEÓN (dyspnea on exertion) Chest pain Hypertension Prostate enlargement Surgical History Hx of endoscopy History of colonoscopy History of cholecystectomy Family History Father No problems noted. Mother Stroke Hypertension Social History Housing: House Alcohol intake: current Alcohol intake frequency: a few times a month Patient Tobacco Use Status: Former Tobacco user e-Cigarette/Vaping Use: Never Used service: No Current occupational status: retired Cognitive needs: No Hearing needs: No Vision needs: Yes Questionnaire Thrive Questionnaire Date Thrive assessed: 10/20/23 SHARYN-7 AMB Questionnaire SHARYN-7 Date SHARYN - 7 assessed: 10/20/23 Source: Developed by Drs. Brendan Lawson, Carmita Casillas, Evans Goodwin and colleagues, with an educational lennie from [employer] Review of Systems Const All systems reviewed & are unremarkable except as noted in HPI and below Resp Reports no additional complaints GI Reports no additional complaints Reports no additional complaints Musc Reports no additional complaints Physical exam (Primary Care) Vital Signs: Last Vital Signs Pulse 90 03/08/24 13:48 BP 112/70 03/08/24 13:48 Pulse Ox 96 03/08/24 13:48 Oxygen Delivery Method Room Air 03/08/24 13:48 BMI result Body Mass Index 27.3 Tobacco/Smoking Status: Tobacco use Status Tobacco use date assessed 03/08/24 03/08/24 13:52 Patient Tobacco Use Status Former Tobacco user 03/08/24 13:52 e-Cigarette/Vaping Use Never Used 03/08/24 13:52 Thrive Assessment: Date of Thrive Assessment Date Thrive assessed 10/20/23 03/08/24 13:52 Const General: no acute distress HENMT Mouth: Normal oral and palatal mucosa present Neck Neck: Yes supple Resp Effort & Inspection: normal respiratory effort Auscultation: clear to auscultation bilaterally Cardio Rhythm: regular rhythm Heart sounds: S1 normal heart sound present and S2 normal heart sound present GI Inspection: Yes normal to inspection Palpation (GI): Soft to palpation Percussion: Yes normal to percussion Auscultation: normal bowel sounds Assessment and Plan Assessment & Plan (1) Hypertension: Code(s): I10 - Essential (primary) hypertension Plan: Blood pressure is low and potassium level has been borderline low on hydrochlorothiazide. Hydrochlorothiazide will be discontinued and patient will continue losartan 50 mg a day and metoprolol. Follow-up in 1 month check BMP before next visit (2) Hypokalemia: Code(s): E87.6 - Hypokalemia Plan: Discontinue hydrochlorothiazide (3) GERD (gastroesophageal reflux disease): Code(s): K21.9 - Gastro-esophageal reflux disease without esophagitis Plan: Continue PPI (4) Prostate enlargement: Code(s): N40.0 - Benign prostatic hyperplasia without lower urinary tract symptoms Plan: Continue finasteride and tamsulosin Orders: Orders Basic Metabolic Panel 1 Month E87.6 - Hypokalemia, I10 - Essential (primary) hypertension UA w Microscopic 1 Month E87.6 - Hypokalemia, I10 - Essential (primary) hypertension Medications: New losartan 50 mg PO DAILY 90 tabs 0RF Discontinued losartan-hydrochlorothiazide 50-12.5 mg Discontinued Reason: Doctor's Order 1 tab PO DAILY 90 tabs 3RF Coding Level of Care Code Est Pt Level 4 (64486) Diagnoses Hypertension I10 Hypokalemia E87.6 GERD (gastroesophageal reflux disease) K21.9 Prostate enlargement N40.0
[2024-03-08 13:48] VITALS: BP 112/70; PULSE 90; O2SAT 96; BMI 27.3
== END 2024-03-08 14:29 | disposition home or self-care (01) ==
PROVIDERS: PCP Internal Medicine; Visit Provider Internal Medicine
DX: I10 Essential (primary) hypertension (principal); E87.6 Hypokalemia; K21.9 Gastro-esophageal reflux disease without esophagitis; N40.0 Benign prostatic hyperplasia without lower urinary tract symptoms

== ENCOUNTER → 2024-03-08 13:35 | Outpatient (BNVA) | payer MEDICARE, SELFPAY | PROVIDERS: PCP Internal Medicine; Visit Provider Internal Medicine | DX: I10 Essential (primary) hypertension (principal); E87.6 Hypokalemia; K21.9 Gastro-esophageal reflux disease without esophagitis; N40.0 Benign prostatic hyperplasia without lower urinary tract symptoms | CPT/HCPCS: 99212 ==

== ENCOUNTER 2024-04-01 07:06 | Outpatient (REF) | payer MEDICARE, SELFPAY ==
[2024-04-01 10:15] LABS: Appearance Urine Clear; Color Urine Yellow; Glucose Urine UA Negative (Negative); Leukocyte Esterase Urine Negative (Negative); Nitrite Urine Negative (Negative); PH 5.5 (5.0-9.0); Urine Blood Negative (Negative); Urine Ketones Negative (Negative); Urine Protein Negative (Neg-Trace)
[2024-04-01 10:22] LABS: Bacteria Urine None Seen (None Seen); Hyaline Casts Urine 0-2 /LPF (0-2); RBC Urine 0-2 /HPF (0-2); Squamous Epithelial Cell Urine 0-2 /HPF (0-2); WBC Urine 0-5 /HPF (0-5)
[2024-04-01 11:27] LABS: Anion Gap 10 (12-20); Blood Urea Nitrogen 14 mg/dL (9-16); Calcium 10.1 mg/dL (8.4-10.2); Carbon Dioxide 25 mmol/L (22-29); Chloride 108 mmol/L (96-108); Estimated Glomerular Filt Rate > 60; Glucose Random 81 mg/dL (60-115); Sodium 139 mmol/L (135-145)
== END 2024-04-01 07:07 | disposition home or self-care (01) ==
LOC: HO.HMGCLDS 07:06
PROVIDERS: PCP Internal Medicine; Visit Provider Internal Medicine
DX: E87.6 Hypokalemia (principal); I10 Essential (primary) hypertension
CPT/HCPCS: 36415; 80048; 81001

== ENCOUNTER 2024-04-08 09:54 | Outpatient (AMB) | payer MEDICARE, SELFPAY ==
--- NOTE | 2024-04-08 09:56 | MHC.PC.OV ---
Vital Signs 04/08/24 09:57 Height 5 ft 5 in Weight 166 lb BMI 27.6 BP 134/80 Blood Pressure Location Lt brachial Position Sitting Pulse 70 Pulse Source Pulse Oximeter Pulse Oximetry (%) 98 Oxygen Delivery Method Room Air Intake Visit Reasons: 1 month follow up Intake Note: Pt is here today for 1 month. Allergies No Known Allergies Allergy (Verified 04/08/24 10:00) Medication List - Last Reconciled 04/08/24 by Renetta Feliz MD finasteride 5 mg PO DAILY hydrocortisone 2.5% 1 appl [place] BID-QID PRN losartan 50 mg PO DAILY metoprolol succinate ER 50 mg PO DAILY pantoprazole 40 mg PO DAILY tamsulosin 0.4 mg PO DAILY triamcinolone acetonide 0.5% 1 appl topical BID Tobacco use date assessed: 04/08/24 Dental Screening Dental Screen Date: 10/20/23 HPI 1 month follow up HPI Details Pt presents for HTN, BPH stable on meds. PFSH Medical History Hemorrhoid prolapse Annual physical exam DE LEÓN (dyspnea on exertion) Chest pain Hypertension Prostate enlargement Surgical History Hx of endoscopy History of colonoscopy History of cholecystectomy Family History Father No problems noted. Mother Stroke Hypertension Social History Housing: House Alcohol intake: current Alcohol intake frequency: a few times a month Patient Tobacco Use Status: Former Tobacco user e-Cigarette/Vaping Use: Never Used service: No Current occupational status: retired Cognitive needs: No Hearing needs: No Vision needs: Yes Questionnaire Thrive Questionnaire Date Thrive assessed: 10/20/23 SHARYN-7 AMB Questionnaire SHARYN-7 Date SHARYN - 7 assessed: 10/20/23 Source: Developed by Drs. Brendan Lawson, Carmita Casillas, Evans Goodwin and colleagues, with an educational lennie from [employer] Review of Systems Const All systems reviewed & are unremarkable except as noted in HPI and below Eyes Reports no additional complaints ENT Reports no additional complaints Card Reports no additional complaints Resp Reports no additional complaints GI Reports no additional complaints Reports no additional complaints Physical exam (Primary Care) Vital Signs: Last Vital Signs Pulse 70 04/08/24 09:57 BP 134/80 04/08/24 09:57 Pulse Ox 98 04/08/24 09:57 Oxygen Delivery Method Room Air 04/08/24 09:57 BMI result Body Mass Index 27.6 Tobacco/Smoking Status: Tobacco use Status Tobacco use date assessed 04/08/24 04/08/24 10:01 Patient Tobacco Use Status Former Tobacco user 04/08/24 09:57 e-Cigarette/Vaping Use Never Used 04/08/24 09:57 Thrive Assessment: Date of Thrive Assessment Date Thrive assessed 10/20/23 04/08/24 09:57 Const General: no acute distress HENMT Head: Yes normal to inspection Neck Neck: Yes no lymphadenopathy and Yes supple Resp Effort & Inspection: normal respiratory effort Auscultation: clear to auscultation bilaterally Cardio Rhythm: regular rhythm Heart sounds: S1 normal heart sound present and S2 normal heart sound present GI Inspection: Yes normal to inspection Palpation (GI): Soft to palpation Coding Level of Care Code Est Pt Level 4 (55852) Diagnoses Hypertension I10 Benign enlargement of prostate N40.1; R35.0 Lower urinary tract symptom detail: urinary frequency Lower urinary tract symptom presence: symptoms present GERD (gastroesophageal reflux disease) K21.9 Assessment & Plan Assessment & Plan (1) Hypertension: Code(s): I10 - Essential (primary) hypertension Category: Medical Plan: Continue current medications (2) Benign enlargement of prostate: Code(s): N40.0 - Benign prostatic hyperplasia without lower urinary tract symptoms Category: Medical Qualifiers: Lower urinary tract symptom detail: urinary frequency Lower urinary tract symptom presence: symptoms present Qualified Code(s): N40.1 - Benign prostatic hyperplasia with lower urinary tract symptoms; R35.0 - Frequency of micturition Plan: CONTINUE CURRENT MEDICATIONS (3) GERD (gastroesophageal reflux disease): Code(s): K21.9 - Gastro-esophageal reflux disease without esophagitis Category: Medical Plan: Controlled on PPI follow-up in 6 months with a fasting labs before Orders: Orders Complete Blood Count Auto Diff 6 Months E53.8 - Deficiency of other specified B group vitamins, I10 - Essential (primary) hypertension Comprehensive [place]. Panel Fast 6 Months E53.8 - Deficiency of other specified B group vitamins, I10 - Essential (primary) hypertension Vitamin B12 and Folate 6 Months E53.8 - Deficiency of other specified B group vitamins, I10 - Essential (primary) hypertension Lipid Panel 6 Months E53.8 - Deficiency of other specified B group vitamins, I10 - Essential (primary) hypertension
[2024-04-08 09:57] VITALS: BP 134/80; PULSE 70; O2SAT 98; BMI 27.6
== END 2024-04-08 10:32 | disposition home or self-care (01) ==
PROVIDERS: PCP Internal Medicine; Visit Provider Internal Medicine
DX: I10 Essential (primary) hypertension (principal); N40.1 Benign prostatic hyperplasia with lower urinary tract symptoms; R35.0 Frequency of micturition; K21.9 Gastro-esophageal reflux disease without esophagitis

== ENCOUNTER → 2024-04-08 09:54 | Outpatient (BNVA) | payer MEDICARE, SELFPAY | PROVIDERS: PCP Internal Medicine; Visit Provider Internal Medicine | DX: I10 Essential (primary) hypertension (principal); N40.1 Benign prostatic hyperplasia with lower urinary tract symptoms; R35.0 Frequency of micturition; K21.9 Gastro-esophageal reflux disease without esophagitis | CPT/HCPCS: 99212 ==

== ENCOUNTER 2024-10-31 07:24 | Outpatient (REF) | payer MEDICARE, SELFPAY ==
[2024-10-31 10:18] LABS: MANUAL DIFF FLAG NO
[2024-10-31 10:30] LABS: Basophils Absolute Auto 0.1 X10*3/uL (0.0-0.2); Basophils Percent Auto 0.9 % (0-2); Eosinophils Absolute Auto 0.2 X10*3/uL (0.0-0.4); Eosinophils Percent Auto 3.1 % (0-4); Hematocrit 47.1 % (42.0-52.0); Hemoglobin 15.6 g/dl (14.0-18.0); Imm Gran Abs Auto 0.01 X10*3/uL (0.00-0.03); Imm Gran Pct Auto 0.2 % (0.0-0.4); Lymphocytes Absolute Auto 2.2 X10*3/uL (1.2-4.9); Lymphocytes Percent Auto 39.2 % (20-40); Mean Corpuscular HGB Conc 33.1 g/dl (31.0-36.0); Mean Corpuscular Hemoglobin 31.4 pg (27.0-33.0); Mean Corpuscular Volume 94.8 fL (80.0-98.0); Mean Platelet Volume 9.7 fL (9.4-12.4); Monocytes Absolute Auto 0.5 X10*3/uL (0.1-1.2); Monocytes Percent Auto 8.2 % (2-11); Neutrophils Absolute Auto 2.7 x10*3/uL (2.0-8.3); Neutrophils Percent Auto 48.4 % (45-73); Platelet Count 212 X10*3/uL (160-400); Red Blood Count 4.97 X10*6/uL (4.60-5.80); Red Cell Distribution Width 12.4 % (11.0-16.0); White Blood Count 5.5 X10*3/uL (4.8-10.8)
[2024-10-31 11:35] LABS: Folate 5.4 ng/mL (> or = 4.0); Vitamin B12 358 pg/mL (200-900)
[2024-10-31 11:55] LABS: Alanine Aminotransferase 10 U/L (0-40); Albumin Level 3.7 g/dL (3.5-5.0); Alkaline Phosphatase 85 U/L (39-117); Anion Gap 10 (12-20); Aspartate Amino Transferase 22 U/L (5-37); Bilirubin Total 0.7 mg/dL (0.0-1.0); Blood Urea Nitrogen 17 mg/dL (9-16); Calcium 9.6 mg/dL (8.4-10.2); Carbon Dioxide 25 mmol/L (22-29); Chloride 110 mmol/L (96-108); Cholesterol 166 mg/dL (<200); Estimated Glomerular Filt Rate > 60; Glucose Fasting 90 mg/dL (60-99); HDL Cholesterol 40 mg/dL (>40); LDL Cholesterol Calculated 98 mg/dL (<100); Potassium 3.9 mmol/L (3.3-5.1); Sodium 141 mmol/L (135-145); Total Protein 7.1 g/dL (6.5-8.0); Triglycerides 143 mg/dL (<150)
== END 2024-10-31 07:25 | disposition home or self-care (01) ==
LOC: HO.HMGCLDS 07:24
PROVIDERS: PCP Internal Medicine; Visit Provider Internal Medicine
DX: I10 Essential (primary) hypertension (principal); E53.8 Deficiency of other specified B group vitamins
CPT/HCPCS: 36415; 80053; 80061; 82607; 82746; 85025

== ENCOUNTER 2024-11-07 10:32 | Outpatient (AMB) | payer MEDICARE, SELFPAY ==
--- NOTE | 2024-11-07 10:37 | MHC.PC.OV ---
Vital Signs 11/07/24 10:38 Height 5 ft 5 in Weight 166 lb BMI 27.6 BP 126/76 Blood Pressure Location Rt brachial Position Sitting Respiration 18 Pulse 60 Pulse Source Pulse Oximeter Temp 97.9 F Temp Source Oral Pulse Oximetry (%) 98 Oxygen Delivery Method Room Air Intake Visit Reasons: Follow up Intake Note: Pt is here today for a follow up visit. Allergies No Known Allergies Allergy (Verified 11/07/24 10:49) Medication List - Last Reconciled 11/07/24 by Renetta Feliz MD finasteride 5 mg PO DAILY hydrocortisone 2.5% 1 appl [place] BID-QID PRN losartan 50 mg PO DAILY metoprolol succinate ER 50 mg PO DAILY pantoprazole 40 mg PO DAILY tamsulosin 0.4 mg PO DAILY triamcinolone acetonide 0.5% 1 appl topical BID Tobacco use date assessed: 11/07/24 Fall risk assessment: No Falls in past year Last assessed Fall Risk: 11/07/24 Dental Screening Dental Screen Date: 11/07/24 Did you have a dental visit in the last 12 months?: Yes Did you have a dental problem in the last 6 months where you did not have access to dental care?: No Was dental information given to patient?: Patient has dentist HPI Follow up HPI Details Patient presents for the follow-up on hypertension and BPH. He came back from [place] 2 weeks ago and reports increased urinary frequency and burning sensation on and off when urinating. Patient denies abdominal pelvic pain fever chills or back pain PFSH Medical History (Updated 11/07/24 @ 11:59 by Renetta Feliz MD) Dysuria Diverticulitis Renal mass Adrenal adenoma Urinary retention Hemorrhoid prolapse Annual physical exam DE LEÓN (dyspnea on exertion) Chest pain Hypertension Prostate enlargement Surgical History Hx of endoscopy History of colonoscopy History of cholecystectomy Family History Father No problems noted. Mother Stroke Hypertension Social History Housing: House Alcohol intake: current Alcohol intake frequency: a few times a month Patient Tobacco Use Status: Former Tobacco user e-Cigarette/Vaping Use: Never Used service: No Current occupational status: retired Cognitive needs: No Hearing needs: No Vision needs: Yes Questionnaire PHQ-9 Over the last 2 weeks, how often have you been bothered by any of the following problems? 1. Little interest or pleasure in doing things: not at all 2. Feeling down, depressed, or hopeless: not at all 3. Trouble falling or staying asleep, or sleeping too much: not at all 4. Feeling tired or having little energy: not at all 5. Poor appetite or overeating: not at all 6. Feeling bad about yourself - or that you are a failure or have let yourself or your family down: not at all 7. Trouble concentrating on things, such as reading the newspaper or watching television: not at all 8. Moving or speaking so slowly that other people could have noticed. Or the opposite - being so fidgety or restless that you have been moving around a lot more than usual: not at all 9. Thoughts that you would be better off or of hurting yourself in some way: not at all Total score: 0 Depression Screening Interpretation: Negative Depression Screening Done: Yes 23470 - PHQ-9 Billing: Yes Source: Developed by Drs. Brendan Lawson, Carmita Casillas, Evans Goodwin and colleagues, with an educational lennie from [employer]. Thrive Questionnaire Date Thrive assessed: 11/07/24 I am a: Patient What is your living situation today?: I have a steady place to live Within the past 12 months, did the food you bought not last and you didn't have the money to get more?: Never true Within the past 12 months, did you worry whether your food would run out before you got money to buy more?: Never true Do you have trouble paying for medicines?: No Do you have trouble getting transportation to medical appointments?: No Do you have trouble paying your heating and electricity bill?: No Do you have trouble taking care of your child, family member or friend?: No Do you have trouble with day-to-day activities such as bathing, preparing meals, shopping, managing finances, etc.?: No Are you currently unemployed and looking for a job?: No Are you interested in more education?: No THRIVE Score: 0 SHARYN-7 AMB Questionnaire SHARYN-7 Date SHARYN - 7 assessed: 11/07/24 Feeling nervous, anxious, or on edge: 0 = Not at all Not being able to stop or control worryin = Not at all Worrying too much about different things: 0 = Not at all Trouble relaxin = Not at all Being so restless that it is hard to sit still: 0 = Not at all Becoming easily annoyed or irritable: 0 = Not at all Feeling afraid as if something awful might happen: 0 = Not at all Total SHARYN-7 score (0-4 normal; 5-9 mild; 10-14 moderate; 15-21 severe): 0 Source: Developed by Drs. Brendan Lawson, Carmita Casillas, Evans Goodwin and colleagues, with an educational lennie from [employer]. SHARYN-7 Assessment Billing SHARYN-7 Assessment Tool: SHARYN-7 Assessment 36193 Review of Systems Const All systems reviewed & are unremarkable except as noted in HPI and below Eyes Reports no additional complaints ENT Reports no additional complaints Card Reports no additional complaints Resp Reports no additional complaints GI Reports no additional complaints Reports no additional complaints Physical exam (Primary Care) Vital Signs: Last Vital Signs Temp 97.9 F 11/07/24 10:38 Pulse 60 11/07/24 10:38 Resp 18 11/07/24 10:38 BP 126/76 11/07/24 10:38 Pulse Ox 98 11/07/24 10:38 Oxygen Delivery Method Room Air 11/07/24 10:38 BMI result Body Mass Index 27.6 Tobacco/Smoking Status: Tobacco use Status Tobacco use date assessed 11/07/24 11/07/24 10:50 Patient Tobacco Use Status Former Tobacco user 11/07/24 10:38 e-Cigarette/Vaping Use Never Used 11/07/24 10:38 PHQ-9: PHQ-9 Score PHQ-9: Total score 0 11/07/24 10:54 Depression Screening Interpretation: Negative Thrive Assessment: Date of Thrive Assessment Date Thrive assessed 11/07/24 11/07/24 10:54 Const General: no acute distress HENMT Head: Yes normal to inspection Neck Neck: Yes supple Resp Effort & Inspection: normal respiratory effort Auscultation: clear to auscultation bilaterally Cardio Rhythm: regular rhythm Heart sounds: S1 normal heart sound present and S2 normal heart sound present GI Inspection: Yes normal to inspection Palpation (GI): Soft to palpation Percussion: Yes normal to percussion Auscultation: normal bowel sounds General: Yes no CVA tenderness Back/Spine/Pelvis Back: no CVA tenderness Extrem General: Yes no clubbing, cyanosis or edema Coding Level of Care Code Est Pt Level 4 (27458) Diagnoses Dysuria R30.0 Urinary retention R33.9 Hypertension I10 Additional Codes SHARYN-7 Assessment Billing - SHARYN-7 Assessment Tool: SHARYN-7 Assessment 76247 ([id number]) PHQ-9 - 55276 - PHQ-9 Billing: Yes ([id number]) Assessment & Plan Assessment & Plan (1) Dysuria: Code(s): R30.0 - Dysuria Category: Medical Plan: Check UA and urine culture start Cipro 500 mg twice a day for 1 week if urine culture is positive (2) Urinary retention: Code(s): R33.9 - Retention of urine, unspecified Category: Medical Plan: check the bladder ultrasound to rule out urinary retention (3) Hypertension: Code(s): I10 - Essential (primary) hypertension Category: Medical Plan: Continue current medications Orders: Orders Urine Culture Today R30.0 - Dysuria UA w Microscopic Today R30.0 - Dysuria US bladder Today R31.29 - Other microscopic hematuria, R33.9 - Retention of urine, unspecified Medications: New ciprofloxacin HCl 500 mg PO BID 14 tabs 0RF Refilled metoprolol succinate ER 50 mg PO DAILY 90 tabs 3RF I10 - Essential (primary) hypertension pantoprazole 40 mg PO DAILY 90 tabs 3RF
[2024-11-07 10:38] VITALS: BP 126/76; PULSE 60; RESP 18; TEMP 36.6; O2SAT 98; BMI 27.6
== END 2024-11-07 11:51 | disposition home or self-care (01) ==
LOC: HO.HMCC 10:33
PROVIDERS: PCP Internal Medicine; Visit Provider Internal Medicine
DX: R30.0 Dysuria (principal); R33.9 Retention of urine, unspecified; I10 Essential (primary) hypertension

== ENCOUNTER 2024-11-07 10:32 | Outpatient (REF) | payer MEDICARE, SELFPAY ==
[2024-11-07 13:52] LABS: Appearance Urine Clear; Color Urine Yellow; Glucose Urine UA Negative (Negative); Leukocyte Esterase Urine Negative (Negative); Nitrite Urine Negative (Negative); PH 6.5 (5.0-9.0); Specific Gravity - Urine 1.025 (1.005-1.025); Urine Blood Negative (Negative); Urine Ketones Negative (Negative); Urine Protein Trace mg/dL (Neg-Trace)
[2024-11-07 14:06] LABS: Bacteria Urine None Seen (None Seen); Hyaline Casts Urine 0-2 /LPF (0-2); RBC Urine 0-2 /HPF (0-2); Squamous Epithelial Cell Urine 0-2 /HPF (0-2); WBC Urine 0-5 /HPF (0-5)
== END 2024-11-07 10:33 | disposition home or self-care (01) ==
LOC: HO.HMGCLDS 10:32
PROVIDERS: PCP Internal Medicine; Visit Provider Internal Medicine
DX: R30.0 Dysuria (principal); R33.9 Retention of urine, unspecified; I10 Essential (primary) hypertension
CPT/HCPCS: 81001; 87086; 96127; 99212

== ENCOUNTER 2024-11-25 12:04 | Outpatient (AMB) | payer MEDICARE, SELFPAY ==
--- NOTE | 2024-11-25 12:36 | A.OFFPC_ITS ---
Vital Signs 11/25/24 12:45 Height 5 ft 5 in Weight 166 lb BMI 27.6 BP 134/90 H Blood Pressure Location Rt brachial Position Sitting Pulse 68 Pulse Source Pulse Oximeter Temp 98.2 F Temp Source Oral Pulse Oximetry (%) 96 Oxygen Delivery Method Room Air Intake Visit Reasons: ER follow up Allergies No Known Allergies Allergy (Verified 11/25/24 12:45) Medication List - Last Reconciled 11/25/24 by Renetta Feliz MD ciprofloxacin HCl 500 mg PO BID finasteride 5 mg PO DAILY hydrocortisone 2.5% [address] BID-QID PRN losartan 50 mg PO DAILY metoprolol succinate ER 50 mg PO DAILY pantoprazole 40 mg PO DAILY tamsulosin 0.4 mg PO DAILY Tobacco use date assessed: 11/25/24 Last assessed Fall Risk: 11/25/24 Dental Screening Dental Screen Date: 11/25/24 Did you have a dental visit in the last 12 months?: No Did you have a dental problem in the last 6 months where you did not have access to dental care?: No Was dental information given to patient?: No HPI ER follow up HPI Details Patient presents for the follow-up of ER visit for headache and elevated blood pressure. Patient has been under lot of stress trying to sell house and move back to [place] after 30 years living in [facility]. cardiac ER workup was negative. Patient has been compliant taking his medications regularly [facility] Medical History (Updated 11/07/24 @ 11:59 by Renetta Feliz MD) Dysuria Diverticulitis Renal mass Adrenal adenoma Urinary retention Hemorrhoid prolapse Annual physical exam DE LEÓN (dyspnea on exertion) Chest pain Hypertension Prostate enlargement Surgical History Hx of endoscopy History of colonoscopy History of cholecystectomy Family History Father No problems noted. Mother Stroke Hypertension Social History Housing: House Alcohol intake: current Alcohol intake frequency: a few times a month Patient Tobacco Use Status: Former Tobacco user e-Cigarette/Vaping Use: Never Used service: No Current occupational status: retired Cognitive needs: No Hearing needs: No Vision needs: Yes Questionnaire Thrive Questionnaire Date Thrive assessed: 11/07/24 SHARYN-7 AMB Questionnaire SHARYN-7 Date SHARYN - 7 assessed: 11/07/24 Source: Developed by DrsCrow Lawson, Carmita Casillas, Evans Goodwin and colleagues, with an educational lennie from [employer]. Review of Systems Const All systems reviewed & are unremarkable except as noted in HPI and below Eyes Reports no additional complaints ENT Reports no additional complaints Card Reports no additional complaints Resp Reports no additional complaints GI Reports no additional complaints Reports no additional complaints Physical exam (Primary Care) Vital Signs: Last Vital Signs Temp 98.2 F 11/25/24 12:45 Pulse 68 11/25/24 12:45 BP 134/90 H 11/25/24 12:45 Pulse Ox 96 11/25/24 12:45 Oxygen Delivery Method Room Air 11/25/24 12:45 BMI result Body Mass Index 27.6 Tobacco/Smoking Status: Tobacco use Status Tobacco use date assessed 11/25/24 11/25/24 12:50 Patient Tobacco Use Status Former Tobacco user 11/25/24 12:36 e-Cigarette/Vaping Use Never Used 11/25/24 12:36 Thrive Assessment: Date of Thrive Assessment Date Thrive assessed 11/07/24 11/25/24 12:36 Const General: no acute distress HENMT Head: Yes normal to inspection Face and sinus: Yes normal facial exam Neck Neck: Yes supple Resp Effort & Inspection: normal respiratory effort Auscultation: clear to auscultation bilaterally Cardio Rhythm: regular rhythm Heart sounds: S1 normal heart sound present and S2 normal heart sound present GI Inspection: Yes normal to inspection Palpation (GI): Soft to palpation Auscultation: normal bowel sounds Coding Level of Care Code Est Pt Level 4 (21577) Diagnoses Hypertension I10 Assessment & Plan Assessment & Plan (1) Hypertension: Code(s): I10 - Essential (primary) hypertension Category: Medical Plan: Increase losartan to 50 mg twice a day continue metoprolol follow-up in 1 month. [facility] will be checked in 2 weeks, stress management increase physical activity low-sodium diet discussed with the patient Orders: Orders Basic Metabolic Panel 2 Weeks I10 - Essential (primary) hypertension Medications: Changed From losartan 50 mg PO DAILY 90 tabs 3RF To losartan 50 mg PO BID 180 tabs 3RF Discontinued ciprofloxacin HCl Discontinued Reason: Doctor's Order 500 mg PO BID 14 tabs 0RF
[2024-11-25 12:45] VITALS: BP 134/90; PULSE 68; TEMP 36.8; O2SAT 96; BMI 27.6
--- OUTSIDE RECORDS SUMMARY | 2024-11-25 13:31 | XMS_ITS | Continuity of Care Document ---
Author Organization [facility] ter Address [address] [place] [id number]- Care Team Providers Care Service Order Dispatcher Chief Name Role Phone Renetta Feliz MD Primary Care Physician [id number] Date(s): 11/24/24 - 11/24/[address] [address]- Encounter Diagnosis Hypertension(Final) - 11/24/24 Discharge Disposition: A-D/C Home Attending Physician: Pedro Rincon MD Admitting Physician: Pedro Rincon MD Referring Physician: Not on Staff, Referring MD Encounter Type: Disch ES Allergies, Adverse Reactions, Alerts No Known Allergies Medications doxycycline hyclate 100 mg oral tablet 0 Refills, Maintenance, 01/06/23 2:11:00 PM EDT, Partial fill upon patient request if the prescription is for a schedule II opioid drug. Start Date: 01/06/23 Status: Ordered Repeat number: 1 hydrochlorothiazide-losartan 12.5 mg-50 mg oral tablet 0 Refills, Maintenance, 01/06/23 2:11:00 PM EDT, Partial fill upon patient request if the prescription is for a schedule II opioid drug. Start Date: 01/06/23 Status: Ordered Repeat number: 1 hydrocortisone 2.5% topical cream 0 Refills, Maintenance, 01/06/23 2:11:00 PM EDT, Partial fill upon patient request if the prescription is for a schedule II opioid drug. Start Date: 01/06/23 Status: Ordered Repeat number: 1 Metoprolol Succinate ER 50 mg oral tablet, extended release 0 Refills, Maintenance, 01/06/23 2:11:00 PM EDT, Partial fill upon patient request if the prescription is for a schedule II opioid drug. Start Date: 01/06/23 Status: Ordered Repeat number: 1 pantoprazole 40 mg oral delayed release tablet 0 Refills, Maintenance, 01/06/23 2:11:00 PM EDT Start Date: 01/06/23 Status: Ordered Repeat number: 1 tamsulosin 0.4 mg oral capsule Refills 0, Maintenance, 01/06/23 2:11:00 PM EDT, Partial fill upon patient request if the prescription is for a schedule II opioid drug. Start Date: 01/06/23 Status: Ordered Repeat number: 1 triamcinolone 0.5% topical cream 0 Refills, Maintenance, 01/06/23 2:11:00 PM EDT, Partial fill upon patient request if the prescription is for a schedule II opioid drug. Start Date: 01/06/23 Status: Ordered Repeat number: 1 Problem List Condition Confirmation Course Effective Dates Status Health St atus Informant Hemorrhoids Confirmed Active Results Radiology Reports * Exam Date Time Procedure Performing Provider Status 11/24/24 3:37 PM Chest 2 Views Frontal and Lat Auth (Verified) Notes: (Chest 2 Views Frontal and Lat) Reason For Exam: Chest Pain;Other: RESULT: Chest 2 Views Frontal and Lat Examination: Chest performed on 11/24/2024. History: Chest pain. Findings: Frontal and lateral views of the chest are submitted without comparison. The cardiac and mediastinal silhouettes are within normal limits. The lungs are clear. The osseous and soft tissue structures are unremarkable. Impression: There is no acute cardiopulmonary disease. WSN: [id number] Ordering Physician: Tiffani Rowell Dictated By: Leila Oden MD Dictated Date/Time: 11/24/24 3:41 pm Reviewed By: Leila Oden MD Signed By: Leila Oden MD Signed Date/Time: 11/24/24 3:41 pm Transcribed By: JOZEF Transcribed Date/Time: 11/24/24 3:41 pm EKG study * Event Display: ECG 12-Lead Authored Date: Please click on pdf link to open report * Event Display: ECG 12-Lead Authored Date: Ventricular Rate: 60 BPM Atrial Rate: 60 BPM P-R Interval: 176 ms QRS Duration: 92 ms Q-T Interval: 396 ms QTC Calculation(Bazett): 396 ms P [place]: 50 degrees R [place]: -24 degrees T [place]: 38 degrees Normal sinus rhythm Normal ECG No previous ECGs available Confirmed by STEPHANIE HATCH MD ([id number]) on 11/24/2024 3:56:58 PM [place]: STEPHANIE HATCH MD Patient Care team information Care Team Personnel Name: Renetta Feliz MD Position: S Physician - Primary Care Member Role: PCP Address: [address] Telecom: Care Team Related Persons Name: LYNN RICE Insurance Providers Guarantor name: HYACINTH Health Plan Information #: 1 Payer: [facility] PPO Payer Identifier: HYACINTH Member Number: [id number] Group Number: [id number] Subscriber Identifier: [id number] Relationship to Subscriber: self Coverage Type: Medicare PPO Coverage Verification Date: NA Telecom: Address:
== END 2024-11-25 13:22 | disposition home or self-care (01) ==
LOC: HO.HMCC 12:05
PROVIDERS: PCP Internal Medicine; Visit Provider Internal Medicine
DX: I10 Essential (primary) hypertension (principal)

== ENCOUNTER → 2024-11-25 12:04 | Outpatient (BNVA) | payer MEDICARE, SELFPAY | PROVIDERS: PCP Internal Medicine; Visit Provider Internal Medicine | DX: I10 Essential (primary) hypertension (principal); R51.9 Headache, unspecified | CPT/HCPCS: 99212 ==

== ENCOUNTER 2024-12-05 09:45 | Outpatient (REF) | payer MEDICARE, SELFPAY ==
--- NOTE | ~2024-12-05 | US_ITS ---
CLINICAL HISTORY: R31.29 - Other microscopic hematuria US Urinary Bladder Comparison: None Findings: The urinary bladder is trabeculated. Urinary bladder diverticula are present. Prevoid volume: 653 mLPostvoid volume: 453 mL Ureteral jets are visualized bilaterally. Enlarged prostate. IMPRESSION: 1. 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 2. Large postvoid residual in the urinary bladder. 3. Prostate enlargement. This document has been electronically signed by: Brenda Rodriguez MD on 12/06/2024 14:36:46
== END 2024-12-05 09:46 | disposition home or self-care (01) ==
LOC: HO.HMGCX 09:45
PROVIDERS: PCP Internal Medicine; Visit Provider Internal Medicine
DX: R31.29 Other microscopic hematuria (principal); R33.9 Retention of urine, unspecified
CPT/HCPCS: 76857

== ENCOUNTER → 2024-12-05 10:09 | Outpatient (BNV) | payer MEDICARE, SELFPAY | PROVIDERS: PCP Internal Medicine; Visit Provider Radiology Diagnostic Radiology | DX: N40.0 Benign prostatic hyperplasia without lower urinary tract symptoms (principal) | CPT/HCPCS: 76857 ==